=== PATIENT | male | born 1935 | race Caucasian/White ===

== ENCOUNTER 2019-11-05 16:16 | Emergency (ER) | payer MEDICARE, SELFPAY ==
[2019-11-05 16:27] VITALS: BP 189/85; PULSE 74; RESP 12; TEMP 37.2; O2SAT 95; BMI 32.3
--- NOTE | 2019-11-05 16:32 | ED_ITS ---
HPI - Nausea/Vomiting/Diarrhea <DO Messi Cohn Last Filed: 11/06/19 07:00> General Chief complaint: Nausea/Vomiting/Diarrhea Stated complaint: vomiting Time Seen by Provider: 11/05/19 16:28 Source: patient Mode of arrival: Ambulatory History of Present Illness HPI Narrative: The patient is an 84-year-old male with history of hypertension hyperlipidemia presenting with nausea and vomiting ongoing for the last 4 days. He threw up about 6 times it seems to be decreasing but he also has some periumbilical pain which is nonradiating. He feels overall weak and tired but not dizzy. He has not passed out. He denies any diarrhea or fever. No chest pain cough or shortness of breath. He has had episodes sort of similar to this earlier this year in fact this the 5th one. However he thinks it was related to vertigo and his symptoms quickly resolve. This is the 1st time that they have lasted. He denies any focal deficits. He intermittently has a headache but denies a headache now. He has been unable to take his blood pressure medications because of his nausea and vomiting. MD complaint: nausea, vomiting and abdominal pain Onset (ago): day(s) Location of pain: periumbilical Relieving factors: none Related Data Allergies Allergy/AdvReac Type Severity Reaction Status Date / Time No Known Allergies Allergy Unknown Verified 11/05/19 17:18 Review of Systems <DO Messi Cohn Last Filed: 11/06/19 07:00> Review of Systems Narrative: GENERAL: + generalized weakness Denies chills, fatigue, malaise, fever, sweats, travel HEENT: Denies sinus pain, ear pain, sore throat, difficulty swallowing, neck pain RESPIRATORY: Denies dyspnea, cough, wheezing, hemoptysis, sputum. CARDIOVASCULAR: Denies chest pain, palpitations, orthopnea, edema GASTROINTESTINAL: See HPI : Denies dysuria, frequency, incontinence, hematuria, urinary retention, flank pain. MUSCULOSKELETAL: Denies weakness, joint pain, or bony pain SKIN: No rash, no erythema, no pruritus NEUROLOGIC: Denies weakness, dizziness, headache, numbness, change in speech, confusion PSYCHIATRIC: No concerning psychosocial issues. 12 point review of systems is negative except for those stated above and HPI Patient History <DO Messi Cohn Last Filed: 11/06/19 07:00> Medical History Hyperlipidemia (Acute) Hypertension (Acute) Social History Smoking Status: Never smoker Smoking Status: Never smoker alcohol intake frequency: a few times a week Substance Use Type: does not use Exam <Sandy Sutherland DO - Last Filed: 11/06/19 07:00> Initial Vital Signs Initial Vital Signs: Vital Signs Temperature 98.9 F 11/05/19 16:27 Pulse Rate 74 11/05/19 16:27 Respiratory Rate 12 11/05/19 16:27 Blood Pressure 189/85 H 11/05/19 16:27 Pulse Oximetry 95 11/05/19 16:27 GENERAL: Appears younger than stated age and in no acute distress. HEENT: Head atraumatic,EOMI, pupils reactive, face symmetric, moist mucous membranes CARDIOVASCULAR: Regular rate and rhythm without murmurs, rubs or gallops. RESPIRATORY: Breath sounds equal bilaterally, no wheezes rales or rhonchi. ABDOMEN: Soft, periumbilical pain no right upper quadrant pain : No CVA tenderness EXTREMITIES: Normal range of motion, no clubbing or edema. Neurovascularly intact NEUROLOGICAL: Alert and oriented x4.Normal gait and speech. SKIN: Warm, dry, no laceration, no petechiae, no rashes or lesions. <Laxmi Anderson MD - Last Filed: 11/05/19 20:21> Initial Vital Signs Initial Vital Signs: Vital Signs Temperature 98.9 F 11/05/19 16:27 Pulse Rate 74 11/05/19 16:27 Respiratory Rate 12 11/05/19 16:27 Blood Pressure 189/85 H 11/05/19 16:27 Pulse Oximetry 95 11/05/19 16:27 Scores <Sandy Sutherland DO - Last Filed: 11/06/19 07:00> ABCD2 Citation: Lancet. 2006Mar 24;369(5602):283-92. Validation and refinement of scores to predict very early stroke risk after transient ischaemic attack. iHren SC1, Katelyn PM, Carlos MN, Naman MF, Luna JS, Sonja AL, Karlos S. Course <Sandy Sutherland DO - Last Filed: 11/06/19 07:00> Orders Ordered: Discontinued Medications Sodium Chloride (Normal Saline 0.9%) 1,000 mls @ 1,000 mls/hr IV CONT CARRIE Last Infusion: 11/05/19 18:51 Dose: 0 mls/hr Documented by: Admin: 11/05/19 17:21 Dose: 1,000 mls/hr Documented by: ADONAY Ondansetron HCl (Zofran) 4 mg IV NOW ONE Stop: 11/05/19 17:09 Last Admin: 11/05/19 17:21 Dose: 4 mg Documented by: ADONAY Stylesdansetron HCl (Zofran Odt Prepack) 1 bottle MISC SEEINSTR ONE Stop: 11/05/19 19:43 Last Admin: 11/05/19 19:56 Dose: 1 bottle Documented by: ADONAY Vital Signs Vital signs: Vital Signs - 8 hr 11/05/19 16:27 11/05/19 18:37 11/05/19 19:02 Temperature 98.9 F Pulse Rate 74 67 72 Respiratory Rate 12 15 21 Blood Pressure 189/85 H 178/79 H Pulse Oximetry 95 99 97 11/05/19 19:30 11/05/19 19:38 Temperature Pulse Rate 66 73 Respiratory Rate 15 16 Blood Pressure 180/83 H Pulse Oximetry 97 95 <Laxmi Anderson MD - Last Filed: 11/05/19 20:21> Orders Ordered: Discontinued Medications Sodium Chloride (Normal Saline 0.9%) 1,000 mls @ 1,000 mls/hr IV CONT CARRIE Last Infusion: 11/05/19 18:51 Dose: 0 mls/hr Documented by: Admin: 11/05/19 17:21 Dose: 1,000 mls/hr Documented by: ADONAY Ondansetron HCl (Zofran) 4 mg IV NOW ONE Stop: 11/05/19 17:09 Last Admin: 11/05/19 17:21 Dose: 4 mg Documented by: ADONAY Ondansetron HCl (Zofran Odt Prepack) 1 bottle MISC SEEINSTR ONE Stop: 11/05/19 19:43 Last Admin: 09/09/20 19:56 Dose: 1 bottle Documented by: ADONAY Vital Signs Vital signs: Vital Signs - 8 hr 11/05/19 16:27 11/05/19 18:37 11/05/19 19:02 Temperature 98.9 F Pulse Rate 74 67 72 Respiratory Rate 12 15 21 Blood Pressure 189/85 H 178/79 H Pulse Oximetry 95 99 97 11/05/19 19:30 11/05/19 19:38 Temperature Pulse Rate 66 73 Respiratory Rate 15 16 Blood Pressure 180/83 H Pulse Oximetry 97 95 MDM - Nausea/Vomiting/Diarrhea <Sandy Sutherland DO - Last Filed: 11/06/19 07:00> Lab Data Result diagrams: 11/05/19 17:28 11/05/19 17:28 Labs: Lab Results 11/05/19 11/05/19 11/05/19 Range/Units 17:28 17:28 17:28 WBC 10.1 (4.5-11.0) X10^3/uL RBC 5.60 (4.5-5.9) X10^6/uL Hgb 17.0 (13.5-17.5) g/dL Hct 49.7 (41-53) % MCV 88.8 (80-100) fL MCH 30.4 (26-34) PG MCHC 34.2 (30-36) % RDW 14.2 (11.6-14.8) % Plt Count TNP Neut % (Auto) 74.4 (50-75) % Lymph % (Auto) 15.3 L (25-40) % Prentiss % (Auto) 9.4 (3-14) % Eos % (Auto) 0.4 L (2-4) % Baso % (Auto) 0.5 (0-2) % Neut # (Auto) 7500 H (5325-1990) /uL Lymph # (Auto) 1500 (1624-2744) /uL Prentiss # (Auto) 1000 H (0-900) /uL Eos # (Auto) 0 (0-450) /uL Baso # (Auto) 100 (0-100) /uL Sodium 137 (137-145) mmol/L Potassium 4.1 (3.4-5.1) mmol/L Chloride 101 (98-107) mmol/L Carbon Dioxide 26 (22-32) mmol/L BUN 14 (9-20) mg/dL Creatinine 0.82 (0.66-1.25) mg/dL Estimated GFR > 60.0 (>60) mL/min BUN/Creatinine Ratio 17.1 (6-22) Glucose 111 H (80-110) mg/dL Calcium 9.9 (8.4-10.2) mg/dL Total Bilirubin 2.4 H (0.2-1.3) mg/dL AST 58 (17-59) IU/L ALT 44 (<50) IU/L Alkaline Phosphatase 56 (38-126) U/L Total Creatine Kinase 92 (55-170) U/L CK-MB (CK-2) TNP CK-MB (CK-2) Rel Index TNP Troponin I < 0.012 (0.01-0.034) ng/mL Total Protein 8.3 H (6.3-8.2) g/dL Albumin 4.9 (3.5-5.0) g/dL Globulin 3.4 (1.7-4.1) g/dL Albumin/Globulin Ratio 1.4 (1.0-2.8) Lipase 78 (23-300) U/L Urine Dip Bedside Urine Glucose Negative Bedside Urine Bilirubin - Negative Bedside Urine Ketone + 15 Urine Specific Pelican 1.005 Bedside Urine Occult Blood - Negative Bedside Urine pH 7.0 Bedside Urine Protein - Negative Bedside Urine Urobilinogen - Negative Bedside Urine Nitrite - Negative Bedside Urine Leukocytes - Negative Esterase MDM Narrative Medical decision making narrative: Patient signed out to Dr. Anderson, CT and blood work pending <Laxmi Anderson MD - Last Filed: 11/05/19 20:21> Medical Records Attestation: I reviewed the patient's medical records. Lab Data Attestation: I reviewed the patient's lab results. Labs: Lab Results 11/05/19 11/05/19 11/05/19 Range/Units 17:28 17:28 17:28 WBC 10.1 (4.5-11.0) X10^3/uL RBC 5.60 (4.5-5.9) X10^6/uL Hgb 17.0 (13.5-17.5) g/dL Hct 49.7 (41-53) % MCV 88.8 (80-100) fL MCH 30.4 (26-34) PG MCHC 34.2 (30-36) % RDW 14.2 (11.6-14.8) % Plt Count TNP Neut % (Auto) 74.4 (50-75) % Lymph % (Auto) 15.3 L (25-40) % Prentiss % (Auto) 9.4 (3-14) % Eos % (Auto) 0.4 L (2-4) % Baso % (Auto) 0.5 (0-2) % Neut # (Auto) 7500 H (9524-7113) /uL Lymph # (Auto) 1500 (3622-5043) /uL Prentiss # (Auto) 1000 H (0-900) /uL Eos # (Auto) 0 (0-450) /uL Baso # (Auto) 100 (0-100) /uL Sodium 137 (137-145) mmol/L Potassium 4.1 (3.4-5.1) mmol/L Chloride 101 (98-107) mmol/L Carbon Dioxide 26 (22-32) mmol/L BUN 14 (9-20) mg/dL Creatinine 0.82 (0.66-1.25) mg/dL Estimated GFR > 60.0 (>60) mL/min BUN/Creatinine Ratio 17.1 (6-22) Glucose 111 H (80-110) mg/dL Calcium 9.9 (8.4-10.2) mg/dL Total Bilirubin 2.4 H (0.2-1.3) mg/dL AST 58 (17-59) IU/L ALT 44 (<50) IU/L Alkaline Phosphatase 56 (38-126) U/L Total Creatine Kinase 92 (55-170) U/L CK-MB (CK-2) TNP CK-MB (CK-2) Rel Index TNP Troponin I < 0.012 (0.01-0.034) ng/mL Total Protein 8.3 H (6.3-8.2) g/dL Albumin 4.9 (3.5-5.0) g/dL Globulin 3.4 (1.7-4.1) g/dL Albumin/Globulin Ratio 1.4 (1.0-2.8) Lipase 78 (23-300) U/L Urine Dip Bedside Urine Glucose Negative Bedside Urine Bilirubin - Negative Bedside Urine Ketone + 15 Urine Specific Pelican 1.005 Bedside Urine Occult Blood - Negative Bedside Urine pH 7.0 Bedside Urine Protein - Negative Bedside Urine Urobilinogen - Negative Bedside Urine Nitrite - Negative Bedside Urine Leukocytes - Negative Esterase Imaging Data CT scan - abdomen/pelvis: Radiologist's Impression: FINDINGS: Image quality: Excellent. ABDOMEN: Lung bases: Visualized lung bases demonstrate mild bibasilar dependent atelectasis. Heart size is normal. Solid organs: Liver demonstrates diffusely decreased attenuation relative to the spleen with more geographic area of hyperattenuation involving the posterior margin of the inferior right hepatic lobe. There is minimal focality involving the peripheral margin of the right hepatic lobe more inferiorly best seen on image 33, series 2. Gallbladder is unremarkable. Biliary system is non dilated. Pancreas enhances normally. There is a 1.5 cm hypodense lesion noted near the head of the pancreas (image 29, series 2. No definite communication with the main pancreatic duct. No peripancreatic i nflammatory stranding. No pancreatic ductal dilatation. Spleen is normal in size and enhancement. No adrenal nodules. There is a nonobstructing 6 mm calculus within the right kidney. Bilateral ureters are normal in course and caliber. No ureteral stones seen. Kidneys demonstrate normal size and enhancement, without hydronephrosis. Peritoneum and bowel: Scattered colonic diverticula without acute inflammatory changes. Diverticular most pronounced near the sigmoid colon. Bowel loops demonstrate normal wall thickness and caliber. No free fluid or air. Nodes and vessels: No retroperitoneal or mesenteric adenopathy by size criteria. Scattered atherosclerotic calcifications of the abdominal aorta and iliac vessels without aneurysmal dilatation. Miscellaneous: No ventral hernias. PELVIS: Genitourinary: Bladder wall thickness is normal. The prostate gland is not visualized and presumably resected.. Miscellaneous: No inguinal hernias or adenopathy. Bones: No suspicious bony lesions. No acute vertebral body compression fractures. IMPRESSION: 1. CT abdomen and pelvis without acute abnormalities. Specifically, no evidence for obstruction or acute inflammatory/infectious process. 2. Diffuse hepatic steatosis with more geographic areas of hyperattenuation involving the posterior, inferior right hepatic lobe likely representing fatty sparing. There is a small area of more focal hyperattenuation which is still favored to represent focal fatty sparing. Recommend outpatient CT or MRI (hepatic mass protocol) to further characterize. 3. A 1.5 cm hypodense lesion noted near the head of the pancreas suspicious for pancreatic neoplasm. This can also be evaluated with outpatient CT or MRI (pancreatic mass protocol) for further characterization. 4. Scattered colonic diverticula without acute diverticulitis. 5. Nonobstructing right nephrolith without hydronephrosis. Dictated by: Rudy Merritt M.D. on 11/05/2019 at 18:51 ECG Data Attestation: I personally reviewed and interpreted this ECG as follows: Interpretation: Sinus rhythm at a rate of 73 Normal intervals, normal axis No acute ischemic changes MDM Narrative Medical decision making narrative: Of note and likely not related to today's acute findings but certainly needing follow-up: A 1.5 cm hypodense lesion noted near the head of the pancreas suspicious for pancreatic neoplasm. This can also be evaluated with outpatient CT or MRI (pancreatic mass protocol) for further characterization. Patient is feeling much better after Zofran and rehydration. Will send home with Zofran prepack. Use able to tolerate cranberry juice without difficulty. I did review with he and his the concerning findings above. Recommended a follow-up with Dr. Urban tomorrow to arrange additional imaging studies. He is safe for home discharge Discharge Plan Departure Patient Disposition: Home Clinical Impression: Acute vomiting, Abnormal finding on CT scan Discharge Date/Time: 11/05/19 19:45 Instructions: DI for Vomiting -- Adult Activity Restrictions/Additional Instructions: Thank you for coming in today. I am glad you are feeling better. There were no signs of acute infection or surgical emergencies with your CT scan. I am going to send you home with Zofran to use to help with the nausea. On your CT scan there was an incidental finding that the radiologist was concerned might be a pancreatic cancer. This is not a diagnosis and this finding needs additional workup. Please contact Dr. Urban office tomorrow so that they can help set up the next study all so we know what this finding actu ally means. I wish you the best Referrals: Jt Urban MD [Primary Care Provider] -
--- NOTE | 2019-11-05 17:08 | DI.CT.S_ITS ---
PROCEDURE: CT ABDOMEN PELVIS W CON INDICATIONS: ab pain with vomiting TECHNIQUE: After the administration of intravenous contrast, 5 mm thick sections acquired from the diaphragm to the symphysis. 5 mm coronal and sagittal reformats were acquired. For radiation dose reduction, the following was used: automated exposure control, adjustment of mA and/or kV according to patient size. COMPARISON: None. FINDINGS: Image quality: Excellent. ABDOMEN: Lung bases: Visualized lung bases demonstrate mild bibasilar dependent atelectasis. Heart size is normal. Solid organs: Liver demonstrates diffusely decreased attenuation relative to the spleen with more geographic area of hyperattenuation involving the posterior margin of the inferior right hepatic lobe. There is minimal focality involving the peripheral margin of the right hepatic lobe more inferiorly best seen on image 33, series 2. Gallbladder is unremarkable. Biliary system is non dilated. Pancreas enhances normally. There is a 1.5 cm hypodense lesion noted near the head of the pancreas (image 29, series 2. No definite communication with the main pancreatic duct. No peripancreatic inflammatory stranding. No pancreatic ductal dilatation. Spleen is normal in size and enhancement. No adrenal nodules. There is a nonobstructing 6 mm calculus within the right kidney. Bilateral ureters are normal in course and caliber. No ureteral stones seen. Kidneys demonstrate normal size and enhancement, without hydronephrosis. Peritoneum and bowel: Scattered colonic diverticula without acute inflammatory changes. Diverticular most pronounced near the sigmoid colon. Bowel loops demonstrate normal wall thickness and caliber. No free fluid or air. Nodes and vessels: No retroperitoneal or mesenteric adenopathy by size criteria. Scattered atherosclerotic calcifications of the abdominal aorta and iliac vessels without aneurysmal dilatation. Miscellaneous: No ventral hernias. PELVIS: Genitourinary: Bladder wall thickness is normal. The prostate gland is not visualized and presumably resected.. Miscellaneous: No inguinal hernias or adenopathy. Bones: No suspicious bony lesions. No acute vertebral body compression fractures. IMPRESSION: 1. CT abdomen and pelvis without acute abnormalities. Specifically, no evidence for obstruction or acute inflammatory/infectious process. 2. Diffuse hepatic steatosis with more geographic areas of hyperattenuation involving the posterior, inferior right hepatic lobe likely representing fatty sparing. There is a small area of more focal hyperattenuation which is still favored to represent focal fatty sparing. Recommend outpatient CT or MRI (hepatic mass protocol) to further characterize. 3. A 1.5 cm hypodense lesion noted near the head of the pancreas suspicious for pancreatic neoplasm. This can also be evaluated with outpatient CT or MRI (pancreatic mass protocol) for further characterization. 4. Scattered colonic diverticula without acute diverticulitis. 5. Nonobstructing right nephrolith without hydronephrosis. Dictated by: Rudy Merritt M.D. on 11/05/2019 at 18:51 Approved by: Rudy Merritt M.D. on 11/05/2019 at 19:01
[2019-11-05] MEDS: SODIUM CHLORIDE 0.9% 1,000 ML 1000 ML IV (17:21)
[2019-11-05] MEDS: ONDANSETRON 4 MG/2 ML INJ IV (17:21)
[2019-11-05 17:48] LABS: Add Manual Diff / Slide Review NO; Basophils Absolute Auto 100 /uL (0-100); Basophils Percent Auto 0.5 % (0-2); Eosinophils Absolute Auto 0 /uL (0-450); Eosinophils Percent Auto 0.4 % (2-4); Hematocrit 49.7 % (41-53); Lymphocytes Absolute Auto 1500 /uL (1100-4500); Lymphocytes Percent Auto 15.3 % (25-40); Mean Corpuscular HGB Conc 34.2 % (30-36); Mean Corpuscular Hemoglobin 30.4 PG (26-34); Mean Corpuscular Volume 88.8 fL (80-100); Monocytes Absolute Auto 1000 /uL (0-900); Monocytes Percent Auto 9.4 % (3-14); Neutrophils Absolute Auto 7500 /uL (1500-7000); Neutrophils Percent Auto 74.4 % (50-75); Red Cell Distribution Width 14.2 % (11.6-14.8); White Blood Cell Count 10.1 X10^3/uL (4.5-11.0)
[2019-11-05 17:52] LABS: Alanine Aminotransferase 44 IU/L (<50); Albumin 4.9 g/dL (3.5-5.0); Albumin Globulin Ratio 1.4 (1.0-2.8); Alkaline Phosphatase 56 U/L (38-126); Aspartate Aminotransferase 58 IU/L (17-59); BUN Creatinine Ratio 17.1 (6-22); Bilirubin Total 2.4 mg/dL (0.2-1.3); Blood Urea Nitrogen 14 mg/dL (9-20); Calcium 9.9 mg/dL (8.4-10.2); Carbon Dioxide 26 mmol/L (22-32); Chloride 101 mmol/L (98-107); Creatine Kinase 92 U/L (55-170); Estimated Glomerular Filt Rate > 60.0 mL/min (>60); Globulin 3.4 g/dL (1.7-4.1); Glucose 111 mg/dL (80-110); Lipase 78 U/L (23-300); Potassium 4.1 mmol/L (3.4-5.1); Sodium 137 mmol/L (137-145); Total Protein 8.3 g/dL (6.3-8.2)
[2019-11-05 18:03] LABS: Troponin I < 0.012 ng/mL (0.01-0.034)
[2019-11-05 18:11] LABS: HEMOLYSIS 77 (0-50)
[2019-11-05 18:37] VITALS: BP 178/79; PULSE 67; RESP 15; O2SAT 99
[2019-11-05 19:02] VITALS: PULSE 72; RESP 21; O2SAT 97
[2019-11-05 19:30] VITALS: PULSE 66; RESP 15; O2SAT 97
[2019-11-05 19:38] VITALS: BP 180/83; PULSE 73; RESP 16; O2SAT 95
[2019-11-05] MEDS: ONDANSETRON 4 MG ODT PREPACK 1 BOTTLE MISC (19:56)
== END 2019-11-05 19:45 | disposition home or self-care (01) ==
PROVIDERS: Emergency Medicine; Emergency Provider Emergency Medicine; Family Provider Internal Medicine; PCP Internal Medicine
DX: R11.2 Nausea with vomiting, unspecified (principal); R93.89 Abnormal findings on diagnostic imaging of other specified body structures; E78.5 Hyperlipidemia, unspecified; I10 Essential (primary) hypertension
CPT/HCPCS: 36415; 74177; 80053; 81003; 82550; 83690; 84484; 85025; 93005; 96361; 96374; 99284; J2405; Q9967

== ENCOUNTER → 2019-12-23 19:57 | Outpatient (ROUT) | payer MEDICARE, SELFPAY ==
[2019-12-23 20:51] LABS: Add Manual Diff / Slide Review NO; Basophils Absolute Auto 0 /uL (0-100); Basophils Percent Auto 0.3 % (0-2); Eosinophils Absolute Auto 100 /uL (0-450); Eosinophils Percent Auto 1.2 % (2-4); Hematocrit 51.9 % (41-53); Hemoglobin 17.1 g/dL (13.5-17.5); Lymphocytes Absolute Auto 1500 /uL (1100-4500); Lymphocytes Percent Auto 22.2 % (25-40); Mean Corpuscular Hemoglobin 29.9 PG (26-34); Mean Corpuscular Volume 90.8 fL (80-100); Monocytes Absolute Auto 600 /uL (0-900); Monocytes Percent Auto 8.6 % (3-14); Neutrophils Absolute Auto 4500 /uL (1500-7000); Neutrophils Percent Auto 67.7 % (50-75); Platelet Count 138 X10^3/uL (150-400); Red Blood Cell Count 5.71 X10^6/uL (4.5-5.9); Red Cell Distribution Width 13.8 % (11.6-14.8); White Blood Cell Count 6.6 X10^3/uL (4.5-11.0)
[2019-12-23 21:10] LABS: Alanine Aminotransferase 52 IU/L (<50); Albumin 4.7 g/dL (3.5-5.0); Albumin Globulin Ratio 1.7 (1.0-2.8); Alkaline Phosphatase 81 U/L (38-126); Aspartate Aminotransferase 42 IU/L (17-59); BUN Creatinine Ratio 14.8 (6-22); Bilirubin Total 1.6 mg/dL (0.2-1.3); Blood Urea Nitrogen 13 mg/dL (9-20); Calcium 9.9 mg/dL (8.4-10.2); Carbon Dioxide 26 mmol/L (22-32); Chloride 104 mmol/L (98-107); Cholesterol 150 mg/dL (140-199); Estimated Glomerular Filt Rate > 60.0 mL/min (>60); Globulin 2.8 g/dL (1.7-4.1); Glucose 126 mg/dL (80-110); HDL Cholesterol 30 mg/dL (40-60); HEMOLYSIS 23 (0-50); LDL Cholesterol Calculated 49 mg/dL (<100); Potassium 3.9 mmol/L (3.4-5.1); Sodium 141 mmol/L (137-145); Total Protein 7.5 g/dL (6.3-8.2); Triglycerides 353 mg/dL (35-150)
[2019-12-23 22:30] LABS: Hemoglobin A1C% w Est Avg Glu 6.1 % (4.0-6.0)
== END ==
PROVIDERS: Family Provider Internal Medicine; PCP Internal Medicine; Visit Provider Internal Medicine
DX: R63.4 Abnormal weight loss (principal); E78.2 Mixed hyperlipidemia
CPT/HCPCS: 80053; 80061; 83036; 84443; 85025

== ENCOUNTER 2020-11-02 14:49 | Emergency (ER) | payer OTHER, SELFPAY ==
[2020-11-02] VITALS (12 sets, daily range): BP systolic 156–171; BP diastolic 67–122; PULSE 58–62; RESP 12–18; TEMP 36.2; O2SAT 95–99; BMI 30.8
[2020-11-02 15:59] LABS: Add Manual Diff / Slide Review NO; Basophils Absolute Auto 0 /uL (0-100); Basophils Percent Auto 0.3 % (0-2); Eosinophils Absolute Auto 0 /uL (0-450); Eosinophils Percent Auto 0.1 % (2-4); Hematocrit 49.9 % (41-53); Hemoglobin 16.8 g/dL (13.5-17.5); Lymphocytes Absolute Auto 900 /uL (1100-4500); Mean Corpuscular HGB Conc 33.7 % (30-36); Mean Corpuscular Hemoglobin 30.3 PG (26-34); Mean Corpuscular Volume 89.9 fL (80-100); Monocytes Absolute Auto 600 /uL (0-900); Monocytes Percent Auto 4.6 % (3-14); Neutrophils Absolute Auto 11800 /uL (1500-7000); Platelet Count 154 X10^3/uL (150-400); Red Blood Cell Count 5.55 X10^6/uL (4.5-5.9); Red Cell Distribution Width 13.9 % (11.6-14.8); White Blood Cell Count 13.4 X10^3/uL (4.5-11.0)
[2020-11-02 16:11] LABS: Alanine Aminotransferase 25 IU/L (<50); Albumin 5.1 g/dL (3.5-5.0); Albumin Globulin Ratio 1.8 (1.0-2.8); Alkaline Phosphatase 70 U/L (38-126); Aspartate Aminotransferase 29 IU/L (17-59); BUN Creatinine Ratio 19.7 (6-22); Bilirubin Total 1.9 mg/dL (0.2-1.3); Blood Urea Nitrogen 15 mg/dL (9-20); Calcium 10.2 mg/dL (8.4-10.2); Carbon Dioxide 24 mmol/L (22-32); Chloride 103 mmol/L (98-107); Estimated Glomerular Filt Rate > 60.0 mL/min (>60); Globulin 2.8 g/dL (1.7-4.1); Glucose 138 mg/dL (80-110); HEMOLYSIS 22 (0-50); Lipase 79 U/L (23-300); Potassium 3.9 mmol/L (3.4-5.1); Sodium 139 mmol/L (137-145); Total Protein 7.9 g/dL (6.3-8.2)
[2020-11-02] MEDS: SODIUM CHLORIDE 0.9% 1,000 ML 1000 ML IV (17:03)
--- NOTE | 2020-11-02 17:20 | ED_ITS ---
HPI - Nausea/Vomiting/Diarrhea <TITUS Prieto - Last Filed: 11/02/20 19:21> General Chief complaint: Nausea/Vomiting/Diarrhea Stated complaint: vomitting/dehydration Time Seen by Provider: 11/02/20 16:55 Source: patient Mode of arrival: Ambulatory Limitations: no limitations History of Present Illness HPI Narrative: 85-year-old male with history of hypertension andhyperlipidemia, presents to the ED with nausea and vomiting ongoing for 3 days. He believes he triggered this abdominal pain and vomiting after having a large piece of chocolate cake and a large apple further on Sunday. He reports that 30 minutes later he developed abdominal pain and has been vomiting since and unable to keep anything down, he says he feels dehydrated. He denies having any abdominal pain currently. He feels tired overall but not dizzy. He has not passed out. He denies any diarrhea or fever, last BM was on Sunday. No chest pain cough or shortness of breath. He has had episodes similar to this 1 year ago with an EGD completed at [facility] showing pancreatic cysts without malignancy, several biopsies were taken and all were benign. He reports this feels exactly the same as when he presented to the ED 1 year ago for this same type of abdominal pain. He reports that he is due for a follow-up MRCP to be scheduled as an outpatient and he was planning to do that this week. Related Data Allergies Allergy/AdvReac Type Severity Reaction Status Date / Time lisinopril AdvReac Verified 11/02/20 15:08 Review of Systems <TITUS Prieto - Last Filed: 11/02/20 19:21> Review of Systems Narrative: General: denies fever, chills Head/Neck: denies headache, neck pain Eyes: denies visual changes, eye pain Cardio: denies chest pain, palpitations Respiratory: denies shortness of breath, cough GI: denies abdominal pain, complains of nausea and vomiting, denies diarrhea : denies dysuria, hematuria or flank pain MSK: denies joint pain, muscle weakness Skin: denies rash, itching Neuro: denies numbness, tingling Patient History <TITUS Prieto - Last Filed: 11/02/20 19:21> Medical History (Updated 11/02/20 @ 18:33 by TITUS Prieto) Hyperlipidemia Hypertension Social History Smoking Status: Never smoker Smoking Status: Never smoker alcohol intake frequency: a few times a week Substance Use Type: does not use Exam <TITUS Prieto - Last Filed: 11/02/20 19:21> Narrative Exam Narrative: Independently reviewed vitals signs and nursing notes. General: Awake, alert, nontoxic, no cardiorespiratory distress Head/Neck: Atraumatic, neck full range of motion Eyes: EOMI, conjunctiva normal Nose: nares patent, no rhinorrhea Mouth/Throat: Mucous membranes appear slightly dry Cardio: Regular rate and rhythm, no peripheral edema Respiratory: respirations unlabored without wheezing, stridor, or rales. No retractions. GI: Abdomen soft, nontender to palpation x4 quadrants, no masses or rigidity MSK: Moves all extremities, neurovascularly intact Skin: Normal capillary refill, no rash, normal color for ethnicity, no pallor Neuro: Normal speech and cognition, normal gait Initial Vital Signs Initial Vital Signs: Vital Signs Temperature 97.2 F L 11/02/20 15:09 Pulse Rate 59 L 11/02/20 15:09 Respiratory Rate 18 11/02/20 15:09 Blood Pressure 167/79 H 11/02/20 15:09 Pulse Oximetry 97 11/02/20 15:09 <Laxmi Anderson MD - Last Filed: 11/03/20 14:40> Initial Vital Signs Initial Vital Signs: Vital Signs Temperature 97.2 F L 11/02/20 15:09 Pulse Rate 59 L 11/02/20 15:09 Respiratory Rate 18 11/02/20 15:09 Blood Pressure 167/79 H 11/02/20 15:09 Pulse Oximetry 97 11/02/20 15:09 Course <TITUS Prieto - Last Filed: 11/02/20 19:21> Orders Ordered: Discontinued Medications Sodium Chloride (Normal Saline 0.9%) 1,000 mls @ 1,000 mls/hr IV BOLUS ONE Stop: 11/02/20 16:16 Last Infusion: 11/02/20 18:49 Dose: 0 mls/hr Documented by: Admin: 11/02/20 17:03 Dose: 1,000 mls/hr Documented by: ADONAY Ondansetron HCl (Ondansetron 4 Mg/2 Ml Inj) 4 mg IV NOW ONE Stop: 11/02/20 17:14 Last Admin: 11/02/20 17:25 Dose: 4 mg Documented by: ADONAY Ondansetron HCl (Ondansetron 4 Mg/2 Ml Inj) 4 mg IV NOW ONE Stop: 11/02/20 19:10 Last Admin: 11/02/20 19:12 Dose: 4 mg Documented by: GARIMA Vital Signs Vital signs: Vital Signs - 8 hr 11/02/20 15:09 11/02/20 16:55 11/02/20 17:00 Temperature 97.2 F L Pulse Rate 59 L 62 62 Respiratory Rate 18 13 Blood Pressure 167/79 H 168/70 H 156/69 H Pulse Oximetry 97 97 97 11/02/20 17:30 11/02/20 17:32 11/02/20 18:00 Temperature Pulse Rate 61 60 59 L Respiratory Rate 15 13 13 Blood Pressure 159/70 H Pulse Oximetry 98 99 99 11/02/20 18:01 11/02/20 18:30 11/02/20 18:41 Temperature Pulse Rate 58 L 59 L 61 Respiratory Rate 13 13 16 Blood Pressure 171/72 H 162/122 H 164/67 H Pulse Oximetry 99 98 95 11/02/20 19:00 11/02/20 19:01 11/02/20 19:12 Temperature Pulse Rate 58 L 59 L 59 L Respiratory Rate 12 12 Blood Pressure 163/71 H 163/71 H Pulse Oximetry 99 99 99 <Laxmi Anderson MD - Last Filed: 11/03/20 14:40> Orders Ordered: Discontinued Medications Sodium Chloride (Normal Saline 0.9%) 1,000 mls @ 1,000 mls/hr IV BOLUS ONE Stop: 11/02/20 16:16 Last Infusion: 11/02/20 18:49 Dose: 0 mls/hr Documented by: Admin: 11/02/20 17:03 Dose: 1,000 mls/hr Documented by: ADONAY Ondansetron HCl (Ondansetron 4 Mg/2 Ml Inj) 4 mg IV NOW ONE Stop: 11/02/20 17:14 Last Admin: 11/02/20 17:25 Dose: 4 mg Documented by: ADONAY Ondansetron HCl (Ondansetron 4 Mg/2 Ml Inj) 4 mg IV NOW ONE Stop: 11/02/20 19:10 Last Admin: 11/02/20 19:12 Dose: 4 mg Documented by: GARIMA Vital Signs Vital signs: Vital Signs - 8 hr 11/02/20 15:09 11/02/20 16:55 11/02/20 17:00 Temperature 97.2 F L Pulse Rate 59 L 62 62 Respiratory Rate 18 13 Blood Pressure 167/79 H 168/70 H 156/69 H Pulse Oximetry 97 97 97 11/02/20 17:30 11/02/20 17:32 11/02/20 18:00 Temperature Pulse Rate 61 60 59 L Respiratory Rate 15 13 13 Blood Pressure 159/70 H Pulse Oximetry 98 99 99 11/02/20 18:01 11/02/20 18:30 11/02/20 18:41 Temperature Pulse Rate 58 L 59 L 61 Respiratory Rate 13 13 16 Blood Pressure 171/72 H 162/122 H 164/67 H Pulse Oximetry 99 98 95 11/02/20 19:00 11/02/20 19:01 11/02/20 19:12 Temperature Pulse Rate 58 L 59 L 59 L Respiratory Rate 12 12 Blood Pressure 163/71 H 163/71 H Pulse Oximetry 99 99 99 MDM - Nausea/Vomiting/Diarrhea <TITUS Prieto - Last Filed: 11/02/20 19:21> Lab Data Result diagrams: 11/02/20 15:45 11/02/20 15:45 Labs: Lab Results 11/02/20 11/02/20 Range/Units 15:45 15:45 WBC 13.4 H (4.5-11.0) X10^3/uL RBC 5.55 (4.5-5.9) X10^6/uL Hgb 16.8 (13.5-17.5) g/dL Hct 49.9 (41-53) % MCV 89.9 (80-100) fL MCH 30.3 (26-34) PG MCHC 33.7 (30-36) % RDW 13.9 (11.6-14.8) % Plt Count 154 (150-400) X10^3/uL Neut % (Auto) 88.0 H (50-75) % Lymph % (Auto) 7.0 L (25-40) % Hood % (Auto) 4.6 (3-14) % Eos % (Auto) 0.1 L (2-4) % Baso % (Auto) 0.3 (0-2) % Neut # (Auto) 39599 H (4425-8807) /uL Lymph # (Auto) 900 L (4379-9191) /uL Hood # (Auto) 600 (0-900) /uL Eos # (Auto) 0 (0-450) /uL Baso # (Auto) 0 (0-100) /uL Sodium 139 (137-145) mmol/L Potassium 3.9 (3.4-5.1) mmol/L Chloride 103 (98-107) mmol/L Carbon Dioxide 24 (22-32) mmol/L BUN 15 (9-20) mg/dL Creatinine 0.76 (0.66-1.25) mg/dL Estimated GFR > 60.0 (>60) mL/min BUN/Creatinine Ratio 19.7 (6-22) Glucose 138 H (80-110) mg/dL Calcium 10.2 (8.4-10.2) mg/dL Total Bilirubin 1.9 H (0.2-1.3) mg/dL AST 29 (17-59) IU/L ALT 25 (<50) IU/L Alkaline Phosphatase 70 (38-126) U/L Total Protein 7.9 (6.3-8.2) g/dL Albumin 5.1 H (3.5-5.0) g/dL Globulin 2.8 (1.7-4.1) g/dL Albumin/Globulin Ratio 1.8 (1.0-2.8) Lipase 79 (23-300) U/L [facility] Narrative Medical decision making narrative: 85-year-old male with history of gastroparesis, hypertension, hyperlipidemia, presents to the ED with 3 days of nausea and vomiting following fatty meal. He has a history of pancreatic cysts on EGD in October of 2019 without malignancy. He believes this nausea and vomiting is related to his fatty meal as it started 30 minutes afterwards. No shortness of breath, no chest pain, and no abdominal pain today. His nausea and vomiting was relieved with IV Zofran today as well as 1 L of normal saline; he felt much better after these. He is due for his yearly MRCP and agrees to schedule this, this week. He is afebrile, and nontoxic appearing, he denies dizziness or headache. He was given strict ER precautions to return for any fever, persistent nausea vomiting, diarrhea, shortness of breath, chest pain or any other concerning symptoms. Negative Zee sign, abdomen nontender to palpation, without evidence of sepsis. His lipase was 79, white blood cell count elevated to 13.4 and bilirubin was stable 1.9 up from 1.6 last time. Initial ddx less likely considerations include but not limited to pancreatitis, cholangitis, cholecystitis, worsening gastroparesis, indigestion, and appendicitis. Vital signs were Within normal limits today. Patient is appropriate and amenable to discharge home. Vital signs are stable on repeat examination is unremarkable. Patient has been informed of results. Patient has been given strict return to ER precautions for any new or worsening symptoms. Patient understands to follow up closely with outpatient providers as instructed. Patient understands plan and agrees to discharge home. All questions and concerns answered at this time. <Lxami Anderson MD - Last Filed: 11/03/20 14:40> Lab Data Labs: Lab Results 11/02/20 11/02/20 Range/Units 15:45 15:45 WBC 13.4 H (4.5-11.0) X10^3/uL RBC 5.55 (4.5-5.9) X10^6/uL Hgb 16.8 (13.5-17.5) g/dL Hct 49.9 (41-53) % MCV 89.9 (80-100) fL MCH 30.3 (26-34) PG MCHC 33.7 (30-36) % RDW 13.9 (11.6-14.8) % Plt Count 154 (150-400) X10^3/uL Neut % (Auto) 88.0 H (50-75) % Lymph % (Auto) 7.0 L (25-40) % Hood % (Auto) 4.6 (3-14) % Eos % (Auto) 0.1 L (2-4) % Baso % (Auto) 0.3 (0-2) % Neut # (Auto) 63078 H (3031-9616) /uL Lymph # (Auto) 900 L (2743-9894) /uL Hood # (Auto) 600 (0-900) /uL Eos # (Auto) 0 (0-450) /uL Baso # (Auto) 0 (0-100) /uL Sodium 139 (137-145) mmol/L Potassium 3.9 (3.4-5.1) mmol/L Chloride 103 (98-107) mmol/L Carbon Dioxide 24 (22-32) mmol/L BUN 15 (9-20) mg/dL Creatinine 0.76 (0.66-1.25) mg/dL Estimated GFR > 60.0 (>60) mL/min BUN/Creatinine Ratio 19.7 (6-22) Glucose 138 H (80-110) mg/dL Calcium 10.2 (8.4-10.2) mg/dL Total Bilirubin 1.9 H (0.2-1.3) mg/dL AST 29 (17-59) IU/L ALT 25 (<50) IU/L Alkaline Phosphatase 70 (38-126) U/L Total Protein 7.9 (6.3-8.2) g/dL Albumin 5.1 H (3.5-5.0) g/dL Globulin 2.8 (1.7-4.1) g/dL Albumin/Globulin Ratio 1.8 (1.0-2.8) Lipase 79 (23-300) U/L Discharge Plan Departure Patient Disposition: Home Clinical Impression: Vomiting in adult patient, Dehydration Instructions: Ravia Diet, DI for Vomiting -- Adult Activity Restrictions/Additional Instructions: *You have been diagnosed with nausea, vomiting, and dehydration. Today he received Zofran and normal saline in your IV. Please schedule your over MRCP this week through your doctor at [facility]. Please return to the emergency department for any new or worsening symptoms including fever, chest pain, persistent nausea & vomiting, or anything else concerning. Please follow- up with your primary care physician as well. Thank you for coming in today, I hope you feel better. *What to do: *Please continue to take your regular medications as directed. [ ] New medication prescriptions sent to your pharmacy: [ ] [ ] New medication written as a paper prescription [x] No new medications given *Please follow up with your primary care provider in 2-3 days, call for an appointment. Let them know you were seen in the Emergency Department and that we ask that you be seen in follow up. We will electronically transmit a record of today's note if your PCP is in our system *If you do not have a primary care provider please contact the [facility] Resource line at [phone]. They will ask some questions about your medical history and help get you set up with a doctor in the community. *Return to Emergency Department if you should have any new, worsening or concerning symptoms, such as [fever greater than 101F, chills, worsening pain, persistent vomiting or other bothersome symptoms] Referrals: Jt Urban MD [Primary Care Provider] - <Laxmi Anderson MD - Last Filed: 11/03/20 14:40> Cosign ED Attending Cosignature Attestation: I was immediately available in the department for consultation throughout this patient's visit. I agree with documentation as above. Laxmi Anderson MD
[2020-11-02] MEDS: ONDANSETRON 4 MG/2 ML INJ IV ×2 (17:25→19:12)
--- NOTE | 2020-11-02 18:51 | PC.NURSE ---
Pt has history of gastroparesis. Feels symptoms are similar to previous episodes, but lasting longer this time.
== END 2020-11-02 19:21 | disposition home or self-care (01) ==
PROVIDERS: Emergency Medicine; Emergency Provider Nurse Practitioner Critical Care Medicine; Family Provider Internal Medicine; PCP Internal Medicine
DX: R11.2 Nausea with vomiting, unspecified (principal); E86.0 Dehydration
CPT/HCPCS: 36415; 80053; 83690; 85025; 96361; 96374; 96376; 99284; J2405

== ENCOUNTER → 2020-12-06 14:09 | Outpatient (CLI) | payer OTHER, SELFPAY ==
--- NOTE | 2020-12-06 | DI.MRI.S_ITS ---
PROCEDURE: MR ABDOMEN WO CON INDICATIONS: NEOPLASM OF UNSPECIFIED BEHAVIOR OF DIGESTIVE SYSTEM TECHNIQUE: Coronal HASTE through the abdomen, axial 2-D FLASH in- and [id number], and breath-hold T2 FSE with fat saturation through the biliary system and pancreas. Oblique coronal and axial thin-slice HASTE, radial thick-slab HASTE centered on the extrahepatic bile ducts. Intravenous secretin: Not requested. COMPARISON: [facility], CT, CT ABDOMEN PELVIS W CON, 11/05/2019, 18:19. FINDINGS: Image quality: Excellent. Pancreas and biliary system: Intra- and extra-hepatic biliary ducts are non dilated. Pancreas is normal in morphology, without adjacent soft tissue edema. Within the pancreatic head, there is a circumscribed T2 hyperintensity separate from the main pancreatic duct, closely associated to, and potentially communicating with a nondilated common duct. There may either be tiny loculations or a small serpiginous tail. It measures about 1.1 x 1.1 cm. Pancreatic duct is normal in caliber, without developmental anomalies. Several very small side branch dilatations are present along the pancreatic tail. Gallbladder demonstrates a normal wall thickness and no stones. Other solid organs: An ovoid subcapsular partially exophytic lesion arises from the medial aspect of segment measuring about 3.7 by 2.2 cm. Demonstrates mildly T2 increased and T1 decreased signal and multiple lobulations. No contrast was given on this study, however its post contrast enhancement on CT scan suggests cavernous hemangioma. A few other subcentimeter T2 hyperintensities are seen in the liver, likely small cysts. The liver is otherwise normal in size and signal. Spleen is normal in size. No adrenal nodules. Both kidneys are normal in size, without hydronephrosis. Nodes and vessels: No retroperitoneal or mesenteric adenopathy by size criteria. Aorta and inferior vena cava are normal in size. Bowel and peritoneum: Unenhanced bowel loops are normal in caliber. No free fluid. Lung bases: No basal pleural effusions. Heart size is normal. Bones and soft tissues: No ventral hernias. Bone marrow is of normal overall signal. IMPRESSION: 1. 1.1 cm pancreatic head cystic lesion. Differential diagnosis includes intraductal papillary mucinous neoplasm without demonstrated communication to the pancreatic duct, rare type 2 choledochal cyst, possibly duodenal diverticulum, pancreatic pseudocyst, or small serous pancreatic neoplasm. Pancreatic protocol (including contrast) MR is recommended in six months to document stability. 2. 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 3. 3.7 cm subcapsular right lobe hepatic hemangioma. Dictated by: Lakisha Watts M.D. on 12/06/2020 at 16:50 Approved by: Lakisha Watts M.D. on 12/06/2020 at 17:13
== END ==
PROVIDERS: Family Provider Internal Medicine; PCP Internal Medicine; Referring Provider Internal Medicine; Visit Provider Internal Medicine
DX: D49.0 Neoplasm of unspecified behavior of digestive system (principal); K86.2 Cyst of pancreas; D18.09 Hemangioma of other sites
CPT/HCPCS: 74181

== ENCOUNTER → 2021-03-21 14:48 | Outpatient (CLI) | payer OTHER, SELFPAY ==
--- NOTE | 2021-03-21 | DI.RAD.S_ITS ---
PROCEDURE: XR SHOULDER LT MIN 2V INDICATIONS: Pain in left shoulder TECHNIQUE: 3 views of the shoulder were acquired. COMPARISON: None. FINDINGS: Bones: No fractures or dislocations. No suspicious bony lesions. Visualized ribs appear intact. Mild periarticular osteophyte formation at the acromioclavicular and glenohumeral joints. Soft tissues: No suspicious soft tissue calcifications. IMPRESSION: Osteoarthritis. No acute fracture. No osseous lesion. If symptoms and/or clinical suspicion for pathology persist, further assessment with repeat, or advanced imaging (e.g., CT, MRI, or bone scan) may be helpful for further assessment. Dictated by: Zoila Pritchett M.D. on 03/21/2021 at 16:21 Approved by: Zoila Pritchett M.D. on 03/21/2021 at 16:23
== END ==
PROVIDERS: Family Provider Internal Medicine; PCP Internal Medicine; Referring Provider Internal Medicine; Visit Provider Student in an Organized Health Care Education/Training Program
DX: M25.512 Pain in left shoulder (principal); M19.012 Primary osteoarthritis, left shoulder
CPT/HCPCS: 73030

== ENCOUNTER → 2021-12-12 12:07 | Outpatient (CLI) | payer OTHER, SELFPAY ==
--- NOTE | 2021-12-12 | DI.MRI.S_ITS ---
PROCEDURE: MR LUMBAR SPINE WO CON INDICATIONS: Spinal stenosis, lumbar region with neurogenic claudication TECHNIQUE: Noncontrast sagittal T1 spin echo and T2 fast echo, sagittal STIR, and T2 fast spin echo through the lumbar spine. In cases with scoliosis, additional coronal T2 fast spin echo may be performed. COMPARISON: [facility], CT, CT ABDOMEN PELVIS W CON, 11/05/2019, 18:19. [facility], MR, L-SPINE WITHOUT CONTRAST, 01/10/2016, 10:36. FINDINGS: Image quality: Excellent. Alignment and Curvature: There is minimal retrolisthesis at L2-L3. Minimal anterolisthesis is seen at L4-L5 and L5-S1 Bone Marrow: Marrow is of normal overall signal. No acute vertebral body compression fractures. Spinal Cord: Conus medullaris terminates at the L1-L2 level. Visualized cord demonstrates normal signal and size. Paraspinous Soft Tissues: No paravertebral masses. T12-L1: Normal appearance. L1-L2: Mild loss of disc height is seen. Loss of disc signal is seen. Mild generalized disc bulge is seen. Mild to moderate bilateral neural foraminal narrowing can be seen. Mild central canal narrowing is seen. These imaging findings have progressed compared to the prior study. L2-L3: Moderate loss of disc height is seen. Loss of disc signal is seen. Moderate disc bulge is seen, which is eccentric to the right. Mild facet joint hypertrophy is seen. Associated hypertrophy of the ligamentum flavum can be seen. Mac VIII analy Moderate central canal narrowing is seen. These imaging findings have progressed compared to the prior study. L3-L4: The disc height is well-preserved. Loss of disc signal is seen at this level. Moderate generalized disc bulge is seen. Moderate facet joint hypertrophy is seen. Associated hypertrophy of the ligamentum flavum can be seen. Moderate bilateral neural foraminal narrowing is seen. Moderate central canal narrowing is seen. When comparison is made with the prior images, these findings are similar. L4-L5: The disc height is well-preserved. Loss of disc signal is seen at this level. Moderate generalized disc bulge is seen. Moderate facet joint hypertrophy is seen. Associated hypertrophy of the ligamentum flavum can be seen. There is at least moderate bilateral neural foraminal narrowing seen. There is a degree of compression seen upon the exiting nerve roots. Moderate central canal narrowing is seen. There is slight progression compared to the prior. L5-S1: Mild loss of disc height is seen. Loss of disc signal is seen. Mild generalized disc bulge is seen. Mild to moderate facet hypertrophy is seen. There is moderate right-sided and at least moderate left-sided neural foraminal narrowing. There is compression seen upon the exiting left L5 nerve root. Mild central canal narrowing is seen. These imaging findings have progressed compared to the prior study. S1-S2: There is a transitional disc seen at this level. IMPRESSION: Multiple levels of lumbar spine degenerative change are seen, which are overall mildly progressed compared to 2016. Dictated by: Julien Florez M.D. on 12/12/2021 at 12:29 Approved by: Julien Florez M.D. on 12/12/2021 at 12:43
== END ==
PROVIDERS: Family Provider Internal Medicine; PCP Student in an Organized Health Care Education/Training Program; Referring Provider Physical Medicine & Rehabilitation; Visit Provider Physical Medicine & Rehabilitation
DX: M47.816 Spondylosis without myelopathy or radiculopathy, lumbar region (principal); M47.817 Spondylosis without myelopathy or radiculopathy, lumbosacral region; M48.062 Spinal stenosis, lumbar region with neurogenic claudication; M48.07 Spinal stenosis, lumbosacral region
CPT/HCPCS: 72148

== ENCOUNTER → 2022-02-10 11:53 | Outpatient (CLI) | payer OTHER, SELFPAY ==
--- NOTE | 2022-02-10 11:55 | DI.RAD.S_ITS ---
PROCEDURE: XR ANKLE LT MIN 3V INDICATIONS: LEFT FOOT SWELLING AND BRUISING AFTER FALL TECHNIQUE: 3 views of the ankle were acquired. COMPARISON: None. FINDINGS: Bones: No fractures or dislocations. Ankle mortise is normally aligned. No suspicious bony lesions. Well-defined plantar and dorsal calcaneal enthesophytes are seen. Soft tissues: Mild lateral ankle soft tissue swelling is seen. No tibiotalar joint effusion. Achilles tendon appears normal. IMPRESSION: No acute ankle fracture or dislocation. Mild ankle soft tissue swelling. Dictated by: Zander Jean-Baptiste M.D. on 02/10/2022 at 16:56 Approved by: Zander Jean-Baptiste M.D. on 02/10/2022 at 16:57
--- NOTE | 2022-02-10 11:55 | DI.RAD.S_ITS ---
PROCEDURE: XR FOOT LT MIN 3V INDICATIONS: LEFT FOOT SWELLING AND BRUISING AFTER FALL TECHNIQUE: 3 views of the foot were acquired. COMPARISON: None. FINDINGS: Bones: Minimally displaced fractures involving 3rd and 4th metatarsal bases are seen. Moderate to severe 1st MTP joint osteoarthritic changes are seen with marked joint space narrowing, extensive subchondral sclerosis and cyst formation and extensive remodeling. Prominent marginal osteophyte formation is also noted. Moderate 1st interphalangeal joint osteoarthritic changes also seen. Well-defined plantar and dorsal calcaneal enthesophytes are seen.. No suspicious bony lesions. Soft tissues: No tibiotalar joint effusion. Achilles tendon appears normal. IMPRESSION: 1. Minimally displaced fracture involving 3rd and 4th metatarsal bases. 2. Severe left great toe osteoarthritis as above. Dictated by: Zander Jean-Baptiste M.D. on 02/10/2022 at 16:53 Approved by: Zander Jena-Baptiste M.D. on 02/10/2022 at 16:56
== END ==
PROVIDERS: Family Provider Internal Medicine; PCP Student in an Organized Health Care Education/Training Program; Referring Provider Student in an Organized Health Care Education/Training Program; Visit Provider Student in an Organized Health Care Education/Training Program
DX: S92.335A Nondisplaced fracture of third metatarsal bone, left foot, initial encounter for closed fracture (principal); S92.345A Nondisplaced fracture of fourth metatarsal bone, left foot, initial encounter for closed fracture; M79.672 Pain in left foot; M79.89 Other specified soft tissue disorders; W19.XXXA Unspecified fall, initial encounter
CPT/HCPCS: 73610; 73630

== ENCOUNTER 2022-07-23 20:03 | Emergency (ER) | payer OTHER, SELFPAY ==
[2022-07-23] VITALS (7 sets, daily range): BP systolic 145–176; BP diastolic 74–81; PULSE 88–92; RESP 18–29; TEMP 37.7; O2SAT 91–96; BMI 40.3
--- NOTE | 2022-07-23 20:27 | DI.RAD.S_ITS ---
PROCEDURE: XR CHEST 1V INDICATIONS: Shortness of breath TECHNIQUE: One view of the chest was acquired. COMPARISON: [facility], , CHEST 2 VIEW, 12/19/2006, 12:39. FINDINGS: Surgical changes and devices: None. Lungs and pleura: Mild patchy left lower lobe opacities in the retrocardiac region. No pleural effusion or pneumothorax. Mediastinum: Mediastinal contours appear normal. Heart size is normal. Bones and chest wall: No suspicious bony lesions. Overlying soft tissues appear unremarkable. IMPRESSION: Mild patchy retrocardiac opacities could represent atelectasis, aspiration, or pneumonia. Approved by: Minesh Armstrong M.D. on 07/23/2022 at 20:57
--- NOTE | 2022-07-23 20:35 | ED.SOB ---
HPI - SOB/Dyspnea General Chief Complaint: Shortness of Breath/Dyspnea Stated Complaint: COVID positive, sore throat, cough, SOB, LOC Time Seen by Provider: 07/23/22 20:34 Source: patient and family Mode of arrival: Ambulatory History of Present Illness HPI Narrative: Patient is an 86-year-old male history of hyperlipidemia presenting today with known COVID. His tested positive for COVID last week tested positive for COVID a couple days ago. He is had coughing spells quite significant so that he can not breathe. reports that he can not breathe and passes out it happened once yesterday and twice today. Has no chest pain. He only has shortness of breath when he is coughing. No abdominal pain nausea or vomiting. They recently traveled and flew back from [place] they were visiting. Related Data Allergies Allergy/AdvReac Type Severity Reaction Status Date / Time lisinopril AdvReac Verified 11/02/20 15:08 Review of Systems Review of Systems ROS Unobtainable: All systems reviewed & are unremarkable except as noted in HPI and below Patient History Medical History Hyperlipidemia Hypertension Social History Smoking Status: Never smoker Smoking Status: Never smoker alcohol intake frequency: a few times a week Substance Use Type: does not use Exam Initial Vital Signs Initial Vital Signs: Vital Signs Pulse Rate 90 07/23/22 20:14 Respiratory Rate 27 H 07/23/22 20:14 Pulse Oximetry 96 07/23/22 20:14 GENERAL: Alert pleasant well-appearing 86-year-old male severe distress HEENT: Head atraumatic,EOMI, pupils reactive, face symmetric, [moist] mucous membranes CARDIOVASCULAR: Regular rate and rhythm without murmurs, rubs or gallops. RESPIRATORY: Breath sounds equal bilaterally, no wheezes rales or rhonchi. Speaks in full symptoms without respiratory distress, cough the lot with deep breathing ABDOMEN: Soft, nontender. Normoactive bowel sounds all 4 quadrants. No guarding or rebound. EXTREMITIES: Normal range of motion, no clubbing or edema. Neurovascularly intact NEUROLOGICAL: Alert and oriented x4.Normal gait and speech. Cranial nerves II through XII grossly intact. SKIN: Warm, dry, no laceration, no petechiae, no rashes or lesions. Course Orders Ordered: ED Orders 07/23/22 20:27 XR chest 1V Stat EKG-12 Lead Stat Measure peak expiratory flow ONCE RT Consult Eval and Treat NOW 07/23/22 20:30 Complete Blood Count AUTO DIFF Stat Comprehensive Metabolic Panel Stat D Dimer Stat Lactate (Lactic Acid) Stat NT-proBNP (BNP-Adult 18+) Stat Prothrombin Time INR Stat Troponin & CK Cardiac Panel Stat Discontinued Medications Albuterol (Albuterol Hfa Prepack) 1 box MISC SEEINSTR ONE Stop: 07/23/22 20:59 Last Admin: 07/23/22 21:03 Dose: 1 box Documented By: Albuterol/Ipratropium (Albuterol/Ipratropium 3 Ml Ampul) 3 ml INH NOW ONE Stop: 07/23/22 20:36 Last Admin: 07/23/22 22:15 Dose: Not Given Documented By: MLM Vital Signs Vital signs: Vital Signs - 8 hr 07/23/22 20:15 07/23/22 20:14 07/23/22 20:15 Temperature 99.8 F H Pulse Rate 92 H 90 91 H Respiratory Rate 18 27 H 29 H Blood Pressure 158/74 H Pulse Oximetry 92 96 95 Oxygen Delivery Method Room Air 07/23/22 20:15 07/23/22 20:30 07/23/22 20:31 Temperature Pulse Rate 88 Respiratory Rate 29 H Blood Pressure 158/74 H 145/77 H Pulse Oximetry 91 Oxygen Delivery Method 07/23/22 20:31 07/23/22 21:00 07/23/22 21:00 Temperature Pulse Rate 90 90 Respiratory Rate 29 H 27 H Blood Pressure 166/77 H Pulse Oximetry 92 93 Oxygen Delivery Method 07/23/22 21:30 07/23/22 21:30 07/23/22 22:00 Temperature Pulse Rate 90 Respiratory Rate 26 H Blood Pressure 174/81 H 176/78 H Pulse Oximetry 92 Oxygen Delivery Method 07/23/22 22:00 Temperature Pulse Rate 88 Respiratory Rate 26 H Blood Pressure Pulse Oximetry 92 Oxygen Delivery Method MDM - SOB/Dyspnea Lab Data 07/23/22 20:30 07/23/22 20:30 Labs: Lab Results 07/23/22 07/23/22 07/23/22 Range/Units 20:30 20:30 20:30 WBC 8.6 (4.5-11.0) X10^3/uL RBC 5.55 (4.5-5.9) X10^6/uL Hgb 16.8 (13.5-17.5) g/dL Hct 49.2 (41-53) % MCV 88.6 (80-100) fL MCH 30.3 (26-34) PG MCHC 34.2 (30-36) % RDW 14.3 (11.6-14.8) % Plt Count 119 L (150-400) X10^3/uL Neut % (Auto) 70.0 (50-75) % Lymph % (Auto) 11.9 L (25-40) % Ogle % (Auto) 17.2 H (3-14) % Eos % (Auto) 0.6 L (2-4) % Baso % (Auto) 0.3 (0-2) % Neut # (Auto) 6000 (0770-4381) /uL Lymph # (Auto) 1000 L (9875-4723) /uL Ogle # (Auto) 1500 H (0-900) /uL Eos # (Auto) 0 (0-450) /uL Baso # (Auto) 0 (0-100) /uL PT 12.7 (10.1-12.7) SECONDS INR 1.1 (0.9-1.3) D-Dimer (<500) ng/ml Sodium 137 (137-145) mmol/L Potassium 4.2 (3.4-5.1) mmol/L Chloride 99 (98-107) mmol/L Carbon Dioxide 28 (22-32) mmol/L BUN 13 (9-20) mg/dL Creatinine 1.12 (0.66-1.25) mg/dL Estimated GFR > 60 (>60) mL/min BUN/Creatinine Ratio 11.6 (6-22) Glucose 142 H (80-110) mg/dL Lactate (0.7-2.1) mmol/L Calcium 9.1 (8.4-10.2) mg/dL Total Bilirubin 1.4 H (0.2-1.3) mg/dL AST 38 (17-59) IU/L ALT 31 (<50) IU/L Alkaline Phosphatase 82 (38-126) U/L Total Creatine Kinase (55-170) U/L CK-MB (CK-2) CK-MB (CK-2) Rel Index Troponin I Cancelled NT-Pro-B Natriuret Pep 57 (<450) pg/mL Total Protein 8.3 H (6.3-8.2) g/dL Albumin 4.9 (3.5-5.0) g/dL Globulin 3.4 (1.7-4.1) g/dL Albumin/Globulin Ratio 1.4 (1.0-2.8) 07/23/22 07/23/22 07/23/22 Range/Units 20:30 20:30 20:30 WBC (4.5-11.0) X10^3/uL RBC (4.5-5.9) X10^6/uL Hgb (13.5-17.5) g/dL Hct (41-53) % MCV (80-100) fL MCH (26-34) PG MCHC (30-36) % RDW (11.6-14.8) % Plt Count (150-400) X10^3/uL Neut % (Auto) (50-75) % Lymph % (Auto) (25-40) % Ogle % (Auto) (3-14) % Eos % (Auto) (2-4) % Baso % (Auto) (0-2) % Neut # (Auto) (0147-9913) /uL Lymph # (Auto) (6423-4145) /uL Ogle # (Auto) (0-900) /uL Eos # (Auto) (0-450) /uL Baso # (Auto) (0-100) /uL PT (10.1-12.7) SECONDS INR (0.9-1.3) D-Dimer 480 (<500) ng/ml Sodium (137-145) mmol/L Potassium (3.4-5.1) mmol/L Chloride (98-107) mmol/L Carbon Dioxide (22-32) mmol/L BUN (9-20) mg/dL Creatinine (0.66-1.25) mg/dL Estimated GFR (>60) mL/min BUN/Creatinine Ratio (6-22) Glucose (80-110) mg/dL Lactate 2.0 (0.7-2.1) mmol/L Calcium (8.4-10.2) mg/dL Total Bilirubin (0.2-1.3) mg/dL AST (17-59) IU/L ALT (<50) IU/L Alkaline Phosphatase (38-126) U/L Total Creatine Kinase 82 (55-170) U/L CK-MB (CK-2) TNP CK-MB (CK-2) Rel Index TNP Troponin I < 0.012 NT-Pro-B Natriuret Pep (<450) pg/mL Total Protein (6.3-8.2) g/dL Albumin (3.5-5.0) g/dL Globulin (1.7-4.1) g/dL Albumin/Globulin Ratio (1.0-2.8) Imaging Data Chest x-ray: Radiologist's Impression: PROCEDURE:? XR CHEST 1V ? INDICATIONS:? Shortness of breath ? TECHNIQUE:? One view of the chest was acquired.? ? COMPARISON:? [facility], , CHEST 2 VIEW, 12/19/2006, 12:39. ? FINDINGS:? ? Surgical changes and devices:? None.? ? Lungs and pleura:? Mild patchy left lower lobe opacities in the retrocardiac region.? No pleural effusion or pneumothorax. ? Mediastinum:? Mediastinal contours appear normal.? Heart size is normal.? ? Bones and chest wall:? No suspicious bony lesions.? Overlying soft tissues appear unremarkable.? ? IMPRESSION:? Mild patchy retrocardiac opacities could represent atelectasis, aspiration, or pneumonia. ? ? ? Approved by: Minesh Armstrong M.D. on 07/23/2022 at 20:57? ECG Data Interpretation: Normal sinus rhythm rate 89 OR interval 144 QRS [address] changes it is loud artifact noted MDM Narrative Medical decision making narrative: Patient is 86-year-old male who has coughing episodes and decreasing breathing. He is positive for COVID. Blood work is overall reassuring his D-dimer is negative despite traveling. No leukocytosis anemia electrolyte abnormality or elevation in troponin. He does not have any pneumonia on x-ray. He is not hypoxic at this time there is no indication for admission. Supportive care only. Discussed with him they do pulse oximeter at home recommended that they check it randomly. He is given an inhaler with spacer and training by respiratory. His symptoms are likely related to his current COVID infection. Discharge Plan Departure Patient Disposition: Home Clinical Impression: COVID-19 Instructions: COVID-19 Activity Restrictions/Additional Instructions: *You have been diagnosed with COVID-19 *What to do: Unfortunately there is no medicine for your COVID. Stay hydrated monitor oxygen at home make sure that it is 90% or more. *Continue to take medications as directed Tylenol or Motrin as directed for pain. Albuterol inhaler 1-2 puffs if needed for couging or shortness of breath *Follow up with your primary care provider in 2-3 days or call [phone] *Return to ER if you should have increasing shortness of breath, chest pain [or] any new, worsening or concerning symptoms Referrals: Sruthi Kelley PA-C [Primary Care Provider] - Stand Alone Forms: Patient Portal/API
[2022-07-23 20:58] LABS: Add Manual Diff / Slide Review NO; Basophils Absolute Auto 0 /uL (0-100); Basophils Percent Auto 0.3 % (0-2); Eosinophils Absolute Auto 0 /uL (0-450); Eosinophils Percent Auto 0.6 % (2-4); Hematocrit 49.2 % (41-53); Hemoglobin 16.8 g/dL (13.5-17.5); Lymphocytes Absolute Auto 1000 /uL (1100-4500); Lymphocytes Percent Auto 11.9 % (25-40); Mean Corpuscular HGB Conc 34.2 % (30-36); Mean Corpuscular Hemoglobin 30.3 PG (26-34); Mean Corpuscular Volume 88.6 fL (80-100); Monocytes Absolute Auto 1500 /uL (0-900); Monocytes Percent Auto 17.2 % (3-14); Neutrophils Absolute Auto 6000 /uL (1500-7000); Platelet Count 119 X10^3/uL (150-400); Red Blood Cell Count 5.55 X10^6/uL (4.5-5.9); Red Cell Distribution Width 14.3 % (11.6-14.8); White Blood Cell Count 8.6 X10^3/uL (4.5-11.0)
[2022-07-23] MEDS: ALBUTEROL HFA PREPACK 1 BOX MISC (21:03)
[2022-07-23 21:04] LABS: INR 1.1 (0.9-1.3); Prothrombin Time 12.7 SECONDS (10.1-12.7)
[2022-07-23 21:11] LABS: D Dimer 480 ng/ml (<500)
[2022-07-23 21:12] LABS: Creatine Kinase 82 U/L (55-170)
[2022-07-23 21:13] LABS: Alanine Aminotransferase 31 IU/L (<50); Albumin 4.9 g/dL (3.5-5.0); Albumin Globulin Ratio 1.4 (1.0-2.8); Alkaline Phosphatase 82 U/L (38-126); Aspartate Aminotransferase 38 IU/L (17-59); BUN Creatinine Ratio 11.6 (6-22); Bilirubin Total 1.4 mg/dL (0.2-1.3); Blood Urea Nitrogen 13 mg/dL (9-20); Calcium 9.1 mg/dL (8.4-10.2); Carbon Dioxide 28 mmol/L (22-32); Chloride 99 mmol/L (98-107); Estimated Glomerular Filt Rate > 60 mL/min (>60); Globulin 3.4 g/dL (1.7-4.1); Glucose 142 mg/dL (80-110); HEMOLYSIS 18 (0-50); Potassium 4.2 mmol/L (3.4-5.1); Sodium 137 mmol/L (137-145); Total Protein 8.3 g/dL (6.3-8.2)
[2022-07-23 21:25] LABS: NT-proBNP (BNP-Adult 18+) 57 pg/mL (<450); Troponin I < 0.012 ng/mL (0.01-0.034)
== END 2022-07-23 22:34 | disposition home or self-care (01) ==
PROVIDERS: Emergency Provider Emergency Medicine; Family Provider Internal Medicine; PCP Student in an Organized Health Care Education/Training Program
DX: U07.1 COVID-19 (principal); I10 Essential (primary) hypertension
CPT/HCPCS: 36415; 71045; 80053; 82550; 83605; 83880; 84484; 85025; 85379; 85610; 93005; 93010; 94640; 99284

== ENCOUNTER → 2022-09-01 16:49 | Outpatient (CLI) | payer OTHER, SELFPAY ==
--- NOTE | 2022-09-01 17:01 | DI.MRI.S_ITS ---
PROCEDURE: MR LUMBAR SPINE WO CON INDICATIONS: LUMBAR RADICULOPATHY TECHNIQUE: Noncontrast sagittal T1 spin echo and T2 fast echo, sagittal STIR, and T2 fast spin echo through the lumbar spine. In cases with scoliosis, additional coronal T2 fast spin echo may be performed. COMPARISON: [facility], RF, LUMBAR SPINE INTERIAMINAR, 06/27/2022, 8:40. [facility], MR, MR LUMBAR SPINE WO CON, 12/12/2021, 12:11. FINDINGS: Image quality: Excellent. Alignment and Curvature: Trace retrolisthesis L2 on three, trace anterolisthesis L4 on five and L5 on S1. Bone Marrow: No acute vertebral body fractures or suspicious osseous edema a few small Schmorl's nodes with minimal surrounding type 2 Modic changes are present in L2 and L4. No progression since the prior exam. Spinal Cord: Conus medullaris terminates at the L1 level. Visualized cord demonstrates normal signal and size. Paraspinous Soft Tissues: No paravertebral masses. T12-L1: Normal appearance. L1-L2: Mild disc height loss and minimal circumferential disc osteophyte. Mild facet arthropathy and ligamentum flavum hypertrophy. Mild left foraminal narrowing, slightly progressed.. L2-L3: Moderate disc height loss and circumferential disc osteophyte. Moderate ligamentum flavum hypertrophy. Mild central canal narrowing including near obliteration of the CSF space. Moderate right and mild left foraminal narrowing, slightly progressed. L3-L4: Mild to moderate circumferential disc osteophyte. Moderate ligamentum flavum hypertrophy and facet arthropathy. Mild central canal narrowing with preservation CSF space and lateral recesses. Mild bilateral foraminal narrowing. No significant changes. L4-L5: Mild broad-based posterior disc bulge. This contacts the exiting left L4 nerve root beyond the foramen. Moderate facet and ligamentum flavum hypertrophy. Mild to moderate bilateral neural foraminal narrowing, unchanged compared to the prior study. There is narrowing of the bilateral lateral recesses and mild central canal narrowing, stable. L5-S1: Moderate bilateral facet arthropathy. Mild bilateral foraminal narrowing, slightly progressed. Disc osteophyte contacts but does not displace the exiting left L5 nerve root. This was present previously. IMPRESSION: 1. Multilevel degeneration as described above with only slight overall progression since the prior study. 2. Most extensively involved level remains at L4-5 where there is narrowing of both lateral recesses, likely affecting both L5 nerve roots. Dictated by: Lakisha Watts M.D. on 09/04/2022 at 11:43 Approved by: Lakisha Watts M.D. on 09/04/2022 at 12:25
== END ==
PROVIDERS: Family Provider Internal Medicine; PCP Student in an Organized Health Care Education/Training Program; Referring Provider Physical Medicine & Rehabilitation; Visit Provider Physical Medicine & Rehabilitation
DX: M47.26 Other spondylosis with radiculopathy, lumbar region (principal); M47.27 Other spondylosis with radiculopathy, lumbosacral region
CPT/HCPCS: 72148

== ENCOUNTER 2022-12-02 18:23 | Observation (INO) | payer OTHER, SELFPAY ==
[2022-12-02] VITALS (30 sets, daily range): BP systolic 144–182; BP diastolic 66–135; PULSE 61–73; RESP 10–24; TEMP 36.3–36.9; O2SAT 86–98; BMI 31.9
--- NOTE | 2022-12-02 18:29 | DI.CT.S_ITS ---
PROCEDURE: CT HEAD/BRAIN WO CON INDICATIONS: trauma TECHNIQUE: Noncontrast 4.5 mm thick angled axial sections acquired from the foramen magnum to the vertex, with coronal and sagittal reformats. For radiation dose reduction, the following was used: automated exposure control, adjustment of mA and/or kV according to patient size. COMPARISON: None. FINDINGS: Image quality: Excellent. CSF spaces: Basal cisterns are patent. No extra-axial fluid collections. The ventricles are symmetric in size and shape. Brain: No intracranial bleeds or masses. There is cerebral volume loss for age, with resultant ventricular and sulcal prominence. There are periventricular and deep white matter chronic small vessel ischemic changes. There is intracranial internal carotid artery atherosclerosis. Skull and face: There is a scalp hematoma seen posteriorly and to the left of the midline, as on series 2, image 32. No associated calvarial fracture is seen. Calvarium and visualized facial bones appear intact, without suspicious lesions. Sinuses: Visualized sinuses and mastoids are clear. IMPRESSION: Left posterior scalp hematoma seen, without an associated calvarial fracture. No definite associated intracranial hemorrhage is seen. Dictated by: Julien Florez M.D. on 12/02/2022 at 17:51 Approved by: Julien Florez M.D. on 12/02/2022 at 17:53
--- NOTE | 2022-12-02 18:29 | DI.CT.S_ITS ---
PROCEDURE: CT CHEST ABD PEL W CON INDICATIONS: trauma thoracic back pain TECHNIQUE: After the administration of intravenous contrast, 5 mm thick sections acquired from the lung apices to the symphysis. 2.5 mm thick coronal and sagittal reformats were acquired. Additional 7 mm thick coronal maximum intensity projection (MIP) reformats acquired through the lungs. Optional 10-minute delayed imaging may be performed from the kidneys to the bladder. For radiation dose reduction, the following was used: automated exposure control, adjustment of mA and/or kV according to patient size. COMPARISON: [facility], CT, CT ABDOMEN PELVIS W CON, 11/05/2019, 18:19. FINDINGS: CHEST: Lungs: No pulmonary contusions or lacerations. No acute airspace opacities. No pneumothorax or hemothorax. Mediastinum: Small Anterior mediastinal hematoma abutting the manubrium. No pericardial effusion. Thoracic aorta and pulmonary arteries demonstrate normal size and enhancement. No mediastinal or hilar adenopathy. Esophagus is normal in caliber. Chest wall: Acute mildly displaced transverse fracture of the manubrium. No acute displaced rib fractures. No subcutaneous emphysema. No axillary or supraclavicular adenopathy. ABDOMEN: Solid organs: No acute traumatic liver injury identified. Rounded structure inferior right lobe of the liver with adjacent wedge-shaped enhancement and suggestion of peripheral nodular discontinuous enhancement, possible hemangioma present as before. Gallbladder is unremarkable. Biliary system is non-dilated. No dilation of the main pancreatic duct. Similar hypodensity at the pancreatic head, 1.3 cm, probable cyst, not significantly changed. Spleen is normal in size and enhancement, without lacerations. No adrenal hematomas. No hydronephrosis. Nonobstructing right renal stone present. Peritoneum and bowel: No free fluid or air. Unenhanced bowel loops demonstrate normal wall thickness and caliber. Nodes and vessels: No retroperitoneal or mesenteric adenopathy. Aorta and inferior vena cava are normal in size and enhancement. PELVIS: Genitourinary: Bladder wall thickness is normal. Prostate gland not visualized could be surgically absent. Miscellaneous: No adenopathy. Bones: Pelvic ring and hip joints appear intact. No vertebral compression fractures. IMPRESSION: 1. Acute mildly displaced manubrium fracture with associated small anterior mediastinal hematoma. 2. Indeterminate hepatic structure possible hemangioma redemonstrated, not significantly changed. Characterization with liver protocol MRI or CT could be performed as clinically indicated. 3. 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 Could consider imaging follow-up in 12-24 months or other interval at clinical discretion. Dictated by: Minesh Feliz M.D. on 12/02/2022 at 19:03 Approved by: Minesh Feliz M.D. on 12/02/2022 at 19:16
--- NOTE | 2022-12-02 18:29 | DI.CT.S_ITS ---
PROCEDURE: CT CERVICAL SPINE WO CON INDICATIONS: trauma TECHNIQUE: Noncontrast 3 mm thick sections acquired from the skull base to the T4 level. Sagittal and coronal reformats were then constructed. For radiation dose reduction, the following was used: automated exposure control, adjustment of mA and/or kV according to patient size. COMPARISON: None. FINDINGS: Bones: No fractures or dislocations. Visualized superior ribs are intact. Multilevel degenerative changes of the cervical spine. Soft tissues: Prevertebral soft tissues are normal in thickness. No paravertebral hematomas. No apical pneumothoraces. IMPRESSION: No acute cervical spine fracture identified. Dictated by: Minesh Feliz M.D. on 12/02/2022 at 18:58 Approved by: Minesh Feliz M.D. on 12/02/2022 at 19:03
--- NOTE | 2022-12-02 18:32 | ED.TRAUMA ---
HPI - Trauma General Chief Complaint: Trauma Stated Complaint: Modified Trauma Time Seen by Provider: 12/02/22 18:29 History of Present Illness HPI narrative: Patient is a 87-year-old male history of hyperlipidemia presenting today as a modified trauma after a 6-12 ft fall. He was standing on his deck looking at gutters when a railing broke and he fell off the deck backwards hitting his head. Possible brief loss consciousness. Not on any antiplatelet or anticoagulation medications. No nausea vomiting. No numbness tingling or weakness. Complaining of cervical and thoracic back pain. He is obvious posterior head abrasion/laceration. Not complaining of any more pain or injury. Related Data Home Medications Medication Instructions Recorded Confirmed duloxetine 60 mg capsule,delayed 60 mg PO DAILY 12/02/22 12/02/22 release gabapentin 300 mg capsule 300 mg PO 3XD 12/02/22 12/02/22 rosuvastatin 10 mg tablet 10 mg PO ONCE PM 12/02/22 12/02/22 Allergies Allergy/AdvReac Type Severity Reaction Status Date / Time lisinopril AdvReac Verified 12/02/22 18:46 Review of Systems Review of Systems ROS Unobtainable: All systems reviewed & are unremarkable except as noted in HPI and below Patient History Medical History (Updated 12/02/22 @ 23:42 by Sandy Sutherland DO) Hyperlipidemia Hypertension Social History household members: spouse Smoking Status: Never smoker alcohol intake: current Smoking Status: Never smoker alcohol intake frequency: a few times a week Substance Use Type: does not use Exam Initial Vital Signs Initial Vital Signs: Vital Signs Temperature 97.3 F L 12/02/22 18:23 Pulse Rate 66 12/02/22 18:23 Respiratory Rate 14 12/02/22 18:23 Blood Pressure 147/98 H 12/02/22 18:23 Pulse Oximetry 97 12/02/22 18:23 Oxygen Delivery Method Room Air 12/02/22 18:23 GENERAL: Alert well-appearing 87-year-old male HEENT: Head normocephalic no significant depressions,, EOMI, pupils reactive, face symmetric, moist mucous membranes, NECK: C-spine collar in place CARDIOVASCULAR: Regular rate and rhythm without murmurs, rubs or gallops. RESPIRATORY: Breath sounds equal bilaterally, no wheezes rales or rhonchi. No crepitations, no subcutaneous air, chest is nontender, no signs of trauma. Mild sternal discomfort no obvious contusion ABDOMEN: Soft, nontender. Normoactive bowel sounds all 4 quadrants. No guarding or rebound. BACK: Nontender vertebrae, no step-offs, no contusions PELVIS: stable. EXTREMITIES: Normal range of motion, no clubbing or edema. Right upper extremity: Within normal limits Left upper extremity: Within normal limits Right lower extremity: Within normal limits Left lower extremity:[Within normal limits] NEUROLOGICAL: Cranial nerves II through XII grossly intact. Normal gait and speech. SKIN: Posterior head abrasion/laceration 5cm Procedures Laceration Repair Laceration 1: Site: scalp Size (cm): 5 Description: linear Depth: simple, single layer Local Anesthetic: lidocaine 1% and with epi Amount of anesthesia used (mL): 3 Pre-repair: wound explored, irrigated extensively and deep structures intact Skin layer closed with: ki (5) Course Orders Ordered: Acetaminophen (Acetaminophen 325 Mg Tablet) 650 mg PO Q6HR PRN PRN Reason: Fever/Mild Pain (1-3) Hydrocodone Bitart/Acetaminophen (Hydrocodone/Acet 5/325 Tablet) 1 tab PO Q4HR PRN PRN Reason: Pain, Moderate (4-6) Last Admin: 12/02/22 21:51 Dose: 1 tab Documented By: CT Hydromorphone HCl (Hydromorphone 0.5 Mg Inj) 0.25 mg IV Q2H PRN PRN Reason: Pain, Severe (7-10) Last Admin: 12/02/22 22:51 Dose: 0.25 mg Documented By: CT Ondansetron HCl (Ondansetron 4 Mg/2 Ml Inj) 4 mg IV Q4HR PRN PRN Reason: Nausea And Vomiting Discontinued Medications Morphine Sulfate (Morphine 2 Mg/Ml Inj) 2 mg IV NOW ONE Stop: 12/02/22 19:41 Last Admin: 12/02/22 19:48 Dose: 2 mg Documented By: MLM Morphine Sulfate (Morphine 2 Mg/Ml Inj) 2 mg IV Q4HR PRN PRN Reason: Pain, Moderate (4-6) MDM - Trauma Lab Data 12/02/22 18:29 12/02/22 18:29 Labs: Lab Results 12/02/22 Range/Units 18:29 WBC 10.1 (4.5-11.0) X10^3/uL RBC 5.03 (4.5-5.9) X10^6/uL Hgb 15.6 (13.5-17.5) g/dL Hct 45.5 (41-53) % MCV 90.4 (80-100) fL MCH 30.9 (26-34) PG MCHC 34.2 (30-36) % RDW 14.3 (11.6-14.8) % Plt Count 167 (150-400) X10^3/uL Neut % (Auto) 74.6 (50-75) % Lymph % (Auto) 15.1 L (25-40) % [place] % (Auto) 9.0 (3-14) % Eos % (Auto) 0.9 L (2-4) % Baso % (Auto) 0.4 (0-2) % Neut # (Auto) 7600 H (3453-5634) /uL Lymph # (Auto) 1500 (5693-3531) /uL [place] # (Auto) 900 (0-900) /uL Eos # (Auto) 100 (0-450) /uL Baso # (Auto) 0 (0-100) /uL Sodium 141 (137-145) mmol/L Potassium 4.0 (3.4-5.1) mmol/L Chloride 105 (98-107) mmol/L Carbon Dioxide 28 (22-32) mmol/L BUN 11 (9-20) mg/dL Creatinine 0.90 (0.66-1.25) mg/dL Estimated GFR > 60 (>60) mL/min BUN/Creatinine Ratio 12.2 (6-22) Glucose 114 H (80-110) mg/dL Calcium 9.7 (8.4-10.2) mg/dL Total Bilirubin 0.8 (0.2-1.3) mg/dL AST 45 (17-59) IU/L ALT 40 (<50) IU/L Alkaline Phosphatase 66 (38-126) U/L Total Creatine Kinase 53 L (55-170) U/L Troponin I < 0.012 (0.01-0.034) ng/mL Total Protein 7.3 (6.3-8.2) g/dL Albumin 4.3 (3.5-5.0) g/dL Globulin 3.0 (1.7-4.1) g/dL Albumin/Globulin Ratio 1.4 (1.0-2.8) Imaging Data CT scan - abdomen/pelvis: Radiologist's Impression: PROCEDURE: CT CHEST ABD PEL W CON INDICATIONS: trauma thoracic back pain TECHNIQUE: After the administration of intravenous contrast, 5 mm thick sections acquired from the lung apices to the symphysis. 2.5 mm thick coronal and sagittal reformats were acquired. Additional 7 mm thick coronal maximum intensity projection (MIP) reformats acquired through the lungs. Optional 10-minute delayed imaging may be performed from the kidneys to the bladder. For radiation dose reduction, the following was used: automated exposure control, adjustment of mA and/or kV according to patient size. COMPARISON: [facility], CT, CT ABDOMEN PELVIS W CON, 11/05/2019, 18:19. FINDINGS: CHEST: Lungs: No pulmonary contusions or lacerations. No acute airspace opacities. No pneumothorax or hemothorax. Mediastinum: Small Anterior mediastinal hematoma abutting the manubrium. No pericardial effusion. Thoracic aorta and pulmonary arteries demonstrate normal size and enhancement. No mediastinal or hilar adenopathy. Esophagus is normal in caliber. Chest wall: Acute mildly displaced transverse fracture of the manubrium. No acute displaced rib fractures. No subcutaneous emphysema. No axillary or supraclavicular adenopathy. ABDOMEN: Solid organs: No acute traumatic liver injury identified. Rounded structure inferior right lobe of the liver with adjacent wedge-shaped enhancement and suggestion of peripheral nodular discontinuous enhancement, possible hemangioma present as before. Gallbladder is unremarkable. Biliary system is non-dilated. No dilation of the main pancreatic duct. Similar hypodensity at the pancreatic head, 1.3 cm, probable cyst, not significantly changed. Spleen is normal in size and enhancement, without lacerations. No adrenal hematomas. No hydronephrosis. Nonobstructing right renal stone present. Peritoneum and bowel: No free fluid or air. Unenhanced bowel loops demonstrate normal wall thickness and caliber. Nodes and vessels: No retroperitoneal or mesenteric adenopathy. Aorta and inferior vena cava are normal in size and enhancement. PELVIS: Genitourinary: Bladder wall thickness is normal. Prostate gland not visualized could be surgically absent. Miscellaneous: No adenopathy. Bones: Pelvic ring and hip joints appear intact. No vertebral compression fractures. IMPRESSION: 1. Acute mildly displaced manubrium fracture with associated small anterior mediastinal hematoma. 2. Indeterminate hepatic structure possible hemangioma redemonstrated, not significantly changed. Characterization with liver protocol MRI or CT could be performed as clinically indicated. 3. 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 Could consider imaging follow-up in 12-24 months or other interval at clinical discretion. Dictated by: Minesh Feliz M.D. on 12/02/2022 at 19:03 ECG Data Interpretation: Sinus rhythm with PACs rate 71 AL interval 172 QRS [address] changes similar prior MDM Narrative Medical decision making narrative: Patient 87-year-old male not on anticoagulation presenting today after fall off deck about 6-12 feet. He has posterior head laceration which was easily stable. Imaging including head CT CC line CT chest abdomen pelvis CT and right elbow x-ray have all been reviewed. He is found to have a mildly displaced manubrium fracture with anterior mediastinal hematoma. Not complaining of pain there unless was palpated. He really was complaining of pain in his back possibly referred pain but he has no vertebral fractures. Pain is well-controlled. Blood work has been reviewed and is overall reassuring without any clinical significant Dr. Clements on-call for surgery updated patient's symptoms test results. Agrees to observation and tele monitoring. Discharge Plan Departure Patient Disposition: Admitted as Observation Clinical Impression: Closed fracture of manubrium Admit Date/Time: 12/02/22 19:41 Admit Provider: Diego Clements
[2022-12-02 18:41] LABS: Add Manual Diff / Slide Review NO; Basophils Absolute Auto 0 /uL (0-100); Basophils Percent Auto 0.4 % (0-2); Eosinophils Absolute Auto 100 /uL (0-450); Eosinophils Percent Auto 0.9 % (2-4); Hematocrit 45.5 % (41-53); Hemoglobin 15.6 g/dL (13.5-17.5); Lymphocytes Absolute Auto 1500 /uL (1100-4500); Lymphocytes Percent Auto 15.1 % (25-40); Mean Corpuscular HGB Conc 34.2 % (30-36); Mean Corpuscular Hemoglobin 30.9 PG (26-34); Mean Corpuscular Volume 90.4 fL (80-100); Monocytes Absolute Auto 900 /uL (0-900); Neutrophils Absolute Auto 7600 /uL (1500-7000); Neutrophils Percent Auto 74.6 % (50-75); Platelet Count 167 X10^3/uL (150-400); Red Blood Cell Count 5.03 X10^6/uL (4.5-5.9); Red Cell Distribution Width 14.3 % (11.6-14.8); White Blood Cell Count 10.1 X10^3/uL (4.5-11.0)
[2022-12-02 18:53] LABS: Alanine Aminotransferase 40 IU/L (<50); Albumin 4.3 g/dL (3.5-5.0); Albumin Globulin Ratio 1.4 (1.0-2.8); Alkaline Phosphatase 66 U/L (38-126); Aspartate Aminotransferase 45 IU/L (17-59); BUN Creatinine Ratio 12.2 (6-22); Bilirubin Total 0.8 mg/dL (0.2-1.3); Blood Urea Nitrogen 11 mg/dL (9-20); Calcium 9.7 mg/dL (8.4-10.2); Carbon Dioxide 28 mmol/L (22-32); Chloride 105 mmol/L (98-107); Creatine Kinase 53 U/L (55-170); Estimated Glomerular Filt Rate > 60 mL/min (>60); Glucose 114 mg/dL (80-110); HEMOLYSIS < 15 (0-50); Sodium 141 mmol/L (137-145); Total Protein 7.3 g/dL (6.3-8.2)
[2022-12-02 19:04] LABS: Troponin I < 0.012 ng/mL (0.01-0.034)
--- NOTE | 2022-12-02 19:45 | DI.RAD.S_ITS ---
PROCEDURE: XR ELBOW RT MIN 3V INDICATIONS: pain TECHNIQUE: 3 views of the elbow were acquired. COMPARISON: None. FINDINGS: Bones: No fractures or dislocations. No suspicious bony lesions. Soft tissues: No elbow joint effusion. No suspicious soft tissue calcifications. IMPRESSION: No trauma found. Normal alignment. Dictated by: Killian Quezada M.D. on 12/02/2022 at 20:20 Approved by: Killian Quezada M.D. on 12/02/2022 at 20:20
[2022-12-02] MEDS: MORPHINE 2 MG/ML INJ IV (19:48)
[2022-12-02] MEDS: HYDROCODONE/ACET 5/325 TABLET 1 TAB PO (21:51)
[2022-12-02] MEDS: HYDROMORPHONE 0.5 MG INJ 0.25 MG IV (22:51)
[2022-12-03] VITALS: BP 149/62; PULSE 86; RESP 19; TEMP 37.3; O2SAT 95
[2022-12-03] MEDS: HYDROCODONE/ACET 5/325 TABLET 1 TAB PO ×3 (06:40→18:11)
[2022-12-03 08:00] VITALS: BP 157/77; PULSE 78; RESP 17; TEMP 36.1; O2SAT 95
[2022-12-03] MEDS: ACETAMINOPHEN 325 MG TABLET 650 MG PO (10:34)
[2022-12-03] MEDS: ONDANSETRON 4 MG/2 ML INJ IV ×3 (11:39→21:26)
[2022-12-03 11:50] VITALS: BP 142/60
[2022-12-03 11:51] VITALS: BP 155/73
[2022-12-03 12:00] VITALS: BP 155/73; PULSE 85; RESP 17; TEMP 36.2; O2SAT 95
--- NOTE | 2022-12-03 12:47 | PC.NURSE ---
Pt A&Ox4, no c/o pain when laying down, not moving. WOODWORKER HELPER, Jorge and I got pt up to ambulate w/ FWW, spouse also present in room. Pt had a tough time rolling in bed d/t R shoulder pain and neck/back pain when moving around. 1 PA to assist to sit up and 1 PA assist to stand, but pt tolerated movement well. Pt c/o of R shoulder pain when trying to pull himself up, 8/10. Pt walked around with the FWW well, but had c/o lower back pain, 6/10 which is more than his normal baseline from chronic low back pain. Pt also c/o SOB, but probably d/t his mildly displaced manubrium fracture with anterior mediastinal hematoma. Pt had no c/o dizziness or lightheadedness, and not orthostatic: laying, 142/60 & standing, 155/73. When pt ambulated back to bed after standing in restroom, he became suddenly nauseated, Zofran administred IV, effective, but when it was lunch time he still had no appetite, which he said was not how he usually is. Elizabeth PO administered to help R shoulder and lower back with 5/10 pain after ambulating and resting in bed for a little bit. Care management updated. MD notified. Care plan continues.
--- NOTE | 2022-12-03 13:13 | CM.DANOTE ---
Patient is an 87 yo male who was admitted on 12/02/22 for Modified Trauma/Fall. Pt has [facility] for insurance and his PCP is Sruthi Kelley. EMR was reviewed. Per Surgeon, pt with 6-12 ft fall on his back from a porch with manubrium fx and shoulder and back pain. Currently no need for surgical intervention. Per RN, pt able to architectural superintendent room for about 10-15 min but became quite nauseous and dizzy with still significant pain in his shoulder. Imaging did not show any injury to pt's back but Surgeon may get additional imaging of pt's shoulder/arm if pain not well managed. SW met bedside with pt and explained role and he confirms he lives in [facility] with his /DPOA and is active and independent at baseline with ADLs and does not use DME for ambulation and still drives. Pt confirms he was working on his gutters at home when the railing broke and he fell backwards. Pt states his spouse is home multimedia specialist and able to provide some physical assist if needed and able to transport him home at d/c. Pt denies any hx of HH or SNF and preference is home when stable. Plan: SW to follow closely for better pain management and likely more imaging to confirm pt safe for d/c home with spouse assist and any further identified discharge planning needs. EMMANUELLE Nava Discharge Planning/Care Management CM Discharge Assessment Start: 12/03/22 13:10 Freq: Status: Active Protocol: Document 12/03/22 13:10 BF (Rec: 12/03/22 13:13 BF [id number]) Discharge Planning Assessment Assigned Work Ticket Distributor EMMANUELLE Holland DPOA/Assigned Designee Name spouse Zaira Contact Information [phone] Advance Directives? Yes Advance Directives on File No History Provided By Patient,Family Member,Medical Record Has Patient been admitted in last 30 No days? Prior Living Arrangements House Household Members spouse Type of transporation used prior to Drives own vehicle admit Independent with ADL's Yes Is patient alert and oriented? Yes Caregiver for Another No Patient/Family Preference Home with Home Health Comment r/o possible HH needs Barriers to Discharge No Discharge Plan Home Community [facility] Home Health Nurse Transportation Arrangement spouse able to provide transport home at d/c Referrals Initiated None needed Additional Comment follow closely to r/o HH RN/PT Whiteboard Updated in Patient Room with Yes name and ext. # of Work Ticket Distributor Review Status In Process Please Provide Date Initial DC 12/03/22 Assessment Was Performed Next Review Type Continued Stay Review
[2022-12-03 16:32] VITALS: BP 146/78; PULSE 68; RESP 17; TEMP 36.2; O2SAT 96
--- NOTE | 2022-12-03 17:07 | P.HP_ITS ---
History of Present Illness History of Present Illness Date Patient Seen: 12/03/22 Chief complaint: Modified Trauma Narrative: Mahendra is an 87-year-old man who presented to the emergency department yesterday after falling about 6 ft off a deck. He hit the back of his head on the ground and he thinks his chin struck his chest. He underwent a full CT scan in the emergency department which demonstrated a fracture of the manubrium with a surrounding hematoma. [facility] Medical History (Updated 12/03/22 @ 17:09 by Diego Clements MD) Hyperlipidemia Hypertension Social History household members: spouse Smoking Status: Never smoker alcohol intake: current Meds Home Medications and Allergies Home Medications Medication Instructions Recorded Confirmed Type duloxetine 60 mg capsule,delayed 60 mg PO DAILY 12/02/22 12/02/22 History release gabapentin 300 mg capsule 300 mg PO 3XD 12/02/22 12/02/22 History rosuvastatin 10 mg tablet 10 mg PO ONCE PM 12/02/22 12/02/22 History Allergies Allergy/AdvReac Type Severity Reaction Status Date / Time lisinopril AdvReac Verified 12/02/22 18:46 Exam Vital Signs (past 8 hours): - 12/03/22 11:50 12/03/22 11:51 12/03/22 12:00 Temperature 97.1 F L Pulse Rate 85 Respiratory Rate 17 Blood Pressure 142/60 H 155/73 H 155/73 H Pulse Oximetry 95 Oxygen Flow Rate 0 12/03/22 16:32 Temperature 97.1 F L Pulse Rate 68 Respiratory Rate 17 Blood Pressure 146/78 H Pulse Oximetry 96 Oxygen Flow Rate 0 Oxygen Delivery Method Room Air Oxygen Flow Rate 0 Const Orientation: alert and awake Chest Other: Tender to palpation in the upper sternal region with no crepitus Resp Effort & Inspection: normal respiratory effort Objective Labs 12/02/22 18:29 12/02/22 18:29 Labs: Laboratory Results - last 24 hr 12/02/22 18:29 WBC 10.1 RBC 5.03 Hgb 15.6 Hct 45.5 MCV 90.4 MCH 30.9 MCHC 34.2 RDW 14.3 Plt Count 167 Neut % (Auto) 74.6 Lymph % (Auto) 15.1 L [place] % (Auto) 9.0 Eos % (Auto) 0.9 L Baso % (Auto) 0.4 Neut # (Auto) 7600 H Lymph # (Auto) 1500 [place] # (Auto) 900 Eos # (Auto) 100 Baso # (Auto) 0 Sodium 141 Potassium 4.0 Chloride 105 Carbon Dioxide 28 BUN 11 Creatinine 0.90 Estimated GFR > 60 BUN/Creatinine Ratio 12.2 Glucose 114 H Calcium 9.7 Total Bilirubin 0.8 AST 45 ALT 40 Alkaline Phosphatase 66 Total Creatine Kinase 53 L Troponin I < 0.012 Total Protein 7.3 Albumin 4.3 Globulin 3.0 Albumin/Globulin Ratio 1.4 Assessment & Plan Assessment and plan (1) Closed fracture of manubrium: Qualifiers: Encounter type: initial encounter Qualified Code(s): S22.21XA - Fracture of manubrium, initial encounter for closed fracture Status: Acute Plan Admit for pain control and telemetry monitoring. Once his pain is under control and he is able ambulate without nausea he able to go. Quality VTE Deep Vein Thrombosis/Pulmonary Embolism Present on Admission: No
[2022-12-03] MEDS: GABAPENTIN 300 MG CAPSULE PO ×2 (17:33→20:12)
[2022-12-03] MEDS: IBUPROFEN 600 MG TABLET PO (18:10)
[2022-12-03] MEDS: SODIUM CHLORIDE 0.9% FLUSH 10 ML IV ×2 (20:12→21:26)
[2022-12-04] VITALS: BP 148/56; PULSE 74; RESP 16; TEMP 36.4; O2SAT 93
[2022-12-04] MEDS: HYDROCODONE/ACET 5/325 TABLET 2 TAB PO ×2 (00:42→06:21)
--- NOTE | 2022-12-04 01:00 | PC.NURSE ---
Addendum entered by Sinai Ogden R.N. 12/04/22 06:23: Patient has slept most of night and states he is having less pain this morning but when lifted right arm still states pain is 8/10 with movement so medicated with vicodin and provided ice pack. Original Note: Patient is alert and oriented. [place] with bilateral hearing aids. Breath sounds CTA w/RA sat of 93%. HRR with elevated BP of 148/56. Having intermittent episodes of nausea but did have a 300cc light green emesis earlier and was medicated with zofran and is currently without nausea. BT hypoactive but states he is passing flatus. Is voiding either with use of urinal or up to bathroom. Is able to reposition but does have some difficulty especially with turning to right side related to pain in right shoulder. Recently medicated with vicodin for complaint of 8/10 right shoulder pain; earlier had also complained of left lower back pain but denied that pain when vicodin given. Ice pack also provided relief of pain. Laceration on posterior head with intact ki. Bilateral foot/hand neuropathy unchanged. Bilateral calf SCD's applied at shift change. Fall risk score is high and bed alarm is activated.
[2022-12-04 06:00] VITALS: BP 156/86; PULSE 67; RESP 16; TEMP 36.1; O2SAT 96
[2022-12-04] MEDS: IBUPROFEN 600 MG TABLET PO ×2 (09:13→16:15)
[2022-12-04] MEDS: GABAPENTIN 300 MG CAPSULE PO ×3 (09:13→20:42)
[2022-12-04] MEDS: DULOXETINE 30 MG CAPSULE 60 MG PO (09:13)
--- NOTE | 2022-12-04 09:18 | DI.RAD.S_ITS ---
PROCEDURE: XR SHOULDER RT MIN 2V INDICATIONS: right shoulder pain after a fall TECHNIQUE: 3 views of the shoulder were acquired. COMPARISON: [facility], CR, XR ELBOW RT MIN 3V, 12/02/2022, 19:57. [facility], CT, CT CHEST ABD PEL W CON, 12/02/2022, 18:34. [facility], CR, XR SHOULDER LT MIN 2V, 03/21/2021, 14:55. FINDINGS: Bones: No fractures or dislocations. Moderate degenerative changes. No suspicious bony lesions. Visualized ribs appear intact. Soft tissues: No suspicious soft tissue calcifications. IMPRESSION: No acute osseous abnormality. Dictated by: Kevin Piper M.D. on 12/04/2022 at 10:45 Approved by: Kevin Piper M.D. on 12/04/2022 at 10:46
--- NOTE | 2022-12-04 09:19 | P.PN_ITS ---
Subjective Subjective Date Patient Seen: 12/04/22 Time Patient Seen: 09:19 Interval history: Maehndra complains primarily of nausea today. He did vomit yesterday. His sternum is not bothering him but he has right shoulder pain. Exam Vital Signs (past 8 hours): - 12/04/22 06:00 Temperature 96.9 F L Pulse Rate 67 Respiratory Rate 16 Blood Pressure 156/86 H Pulse Oximetry 96 Oxygen Flow Rate 0 Oxygen Delivery Method Room Air Oxygen Flow Rate 0 Const Orientation: alert and awake Resp Effort & Inspection: normal respiratory effort Objective Labs 12/02/22 18:29 12/02/22 18:29 [facility] Medical History (Updated 12/03/22 @ 17:09 by Diego Clements MD) Hyperlipidemia Hypertension Social History household members: spouse Smoking Status: Never smoker alcohol intake: current Assessment & Plan Assessment and plan (1) Closed fracture of manubrium: Qualifiers: Encounter type: initial encounter Qualified Code(s): S22.21XA - Fracture of manubrium, initial encounter for closed fracture Status: Acute Plan We will try to transition to more NSAIDs unless narcotics to see if his nausea improves. We will check a right shoulder x-ray to make sure there was no missed injury Quality VTE Deep Vein Thrombosis/Pulmonary Embolism Present on Admission: No
[2022-12-04] MEDS: SODIUM CHLORIDE 0.9% FLUSH 10 ML IV ×2 (09:34→20:44)
[2022-12-04 12:00] VITALS: BP 139/65; PULSE 73; RESP 16; TEMP 36.6; O2SAT 93
--- NOTE | 2022-12-04 15:29 | CM.DPC ---
DCP Cont: Per Surgeon, pt making progress and ordered further imaging on pt's shoulder and results are normal. Per RN, pt has been able to ambulate without nausea today and pain seems better controlled and plan is likely d/c home this evening once Surgeon returns from surgery in the OR currently. No concerns or identified barriers to discharge at this time. Plan: SW to follow for plan of likely discharge home via spouse POV tonight and outpt f/u and any further identified discharge planning needs. EMMANUELLE Nava
[2022-12-04 18:00] VITALS: BP 141/71; PULSE 77; RESP 17; TEMP 36.1; O2SAT 96
[2022-12-04 20:00] VITALS: BP 127/66; PULSE 65; RESP 19; TEMP 36.5; O2SAT 92
[2022-12-05] VITALS: BP 130/65; PULSE 61; RESP 22; TEMP 36.4; O2SAT 94
[2022-12-05] MEDS: ACETAMINOPHEN 325 MG TABLET 650 MG PO ×2 (05:22→15:06)
[2022-12-05 06:00] VITALS: BP 147/67; PULSE 95; RESP 19; TEMP 36.9; O2SAT 95
[2022-12-05] MEDS: DULOXETINE 30 MG CAPSULE 60 MG PO (08:05)
[2022-12-05] MEDS: SODIUM CHLORIDE 0.9% FLUSH 10 ML IV ×2 (08:05→20:53)
[2022-12-05] MEDS: GABAPENTIN 300 MG CAPSULE PO ×3 (08:05→20:52)
[2022-12-05] MEDS: IBUPROFEN 600 MG TABLET PO ×2 (11:03→20:53)
[2022-12-05 12:00] VITALS: BP 130/60; PULSE 90; RESP 17; TEMP 36.6; O2SAT 96
--- NOTE | 2022-12-05 16:12 | PT.IIE ---
Current Diagnoses Hyperlipidemia, unspecified (12/02/22) Fracture of manubrium, initial encounter for closed fracture (12/02/22) Medical History (Last Reviewed 12/02/22 @ 18:34 by Sandy Sutherland DO) Hyperlipidemia Hypertension Physical Therapy Inpatient Evaluation/Re-Eval M1 PT/OT-IP Prior Functional Status Start: 12/05/22 17:12 Freq: NEEDED Status: Active Protocol: Document 12/05/22 17:13 AB (Rec: 12/05/22 17:37 AB [id number]) Medical Review Prior Functional Status Medical History Reviewed Yes Communication Pt is able to communicate all needs. Mobility and Gait Pt reports he ambulates with SPC for long distances due to LBP. Activities of Daily Living and IADL's IND with all ADLs and IADLs at [facility]. Prior Functional Level (Other details) Hx of LBP and bilateral shoulder pain (right>left) Social History Household Members spouse Living Arrangements House Number of Floors (Floors) Two Floors Number of Stairs To Enter/Railing? no MCKAY from garage to back door (ramp) Home Environment Standard Height Toilet,Walk in Shower,Ramp Home Equipment Four Wheel Walker,Straight Cane,Manual Wheelchair,Shower Seat with Backrest Additional Social History Comment Pt reports his room is on second floor (14 steps with left hand rail) but can stay in guest room. is able to assist with basic needs but cannot assist physically. M2 PT-IP Current Condition Start: 12/05/22 17:12 Freq: NEEDED Status: Active Protocol: Document 12/05/22 17:13 AB (Rec: 12/05/22 17:37 AB [id number]) Physical Therapy Current Condition Current Condition Evaluation Date 12/05/22 Treatment Diagnosis sternal fx secondary to fall; functional mobility deficits Onset Date 12/02/22 M3 PT-IP Subjective Start: 12/05/22 17:12 Freq: NEEDED Status: Active Protocol: Document 12/05/22 17:13 AB (Rec: 12/05/22 17:37 AB [id number]) Subjective Physical Therapy Visit Type Type Initial Evaluation Visit Start Time 15:22 Visit Stop Time 16:12 Total Visit Minutes 50 Physical Therapy Visit Comments Patient Comments Pt presents semi supine in bed with at bedside. He is agreeable to PT evaluation. Therapy Pain Assessment Pain When Pain Assessed During Mobility Pain Present Pain Present Pain Reported Location Right Shoulder Intensity 6 Scale Used Numeric (0 - 10) Description Sharp Pain Behaviors Facial Grimacing,Wincing Pain Management Techniques Modification of Treatment,Re- positioning Lower Back Intensity 4 Scale Used Numeric (0 - 10) Pain Behaviors Facial Grimacing,Wincing Pain Management Techniques Modification of Treatment,Re- positioning M4 PT-IP Mobility and Gait Start: 12/05/22 17:12 Freq: NEEDED Status: Active Protocol: Document 12/05/22 17:13 AB (Rec: 12/05/22 17:37 AB [id number]) PT-Bed Mobility Assessment Rolling Type of Rolling Log Rolling Level of Assist Minimal Assistance,1 Person Assistance Supine to Sit Supine to Sit Moderate Assistance,Maximum Assistance,1 Person Assistance Sit to Supine Sit to Supine Moderate Assistance,1 Person Assistance Scooting Scooting to Edge of Bed Moderate Assistance PT-Transfer Assessment Sit to and From Stand Sit to and from Stand Contact Guard Assistance,1 Person Assistance,Use of Upper Extremities Equipment Transfer Assistive Device Gait Belt,Front Wheeled Walker Transfers Transfer Destination Bed,Chair Transfer Technique Stand Step Pivot Transfer Ability Level of Assist Contact Guard Assistance,1 Person Assistance,Use of Upper Extremities Comments Mobility Comments Attempted to perform log rolling due to low back pain and sternal fracture, pt is unable to perform horizontal adduction with RUE, therefore log roll was performed to right side. Pt required Negrita to perform log roll due to LBP . Once in sidelying, the pt required modA to sit at EOB due to weakness and LBP. In sitting the pt had difficulty scooting to edge of bed again due to LBP and UE pain. STS is performed with FWW and CGA, however pt does not bend forward far enough to and has mild-mod retro lean, and also has difficulty maintaining feet flat on ground as toes lift up despite verbal cues. Pt is able to perform stand step pivot transfer to chair with CGA and verbal cues for sequencing. He then ambulated as below. At end of session, pt returned to bed with modA for assistance with LEs while performing log roll on to left side. All needs were met, call light was placed within reach and bed alarm was set. is at bedside. RN was notified of findings. Gait Assessment Gait Gait Assistance Required: Contact Guard Assist Distance (Feet) 15 Assistive Devices Assistive Device Gait Belt,Front Wheeled Walker Gait Deviations General Gait Pattern Decreased Stride Length,Flexed Trunk Factors Limiting Gait Function Factors Limiting Gait Function Decreased Activity Tolerance, Decreased Strength,Pain Comments Gait Comments Pt ambulated 15ft x2 in room with FWW and CGA, and with a seated rest break between bouts of ambulation. Pt demonstrates decreased stride length and mild forward flexed trunk when ambulating. He denies significant increase in pain while ambulating. The pt requires verbal cues for proper use of walker. PT-Balance Assessment Sitting Balance and Reactions Static Sitting Balance Ability Normal Dynamic Sitting Balance Ability Good Standing Balance and Reactions Static Standing Balance Ability Good Dynamic Standing Balance Ability Fair Device Used FWW M5 PT-IP Objective Assessments Start: 12/05/22 17:12 Freq: NEEDED Status: Active Protocol: Document 12/05/22 17:13 AB (Rec: 12/05/22 17:37 AB [id number]) Orientation Orientation/Cognition Level of Alertness Alert Orientation Name,Age,Birthday,Month,Date, Year,Day of Week,Place, Situation Language Function Ability No Deficits Noted Safety Awareness Understands Safety Issues Memory Description No Deficits Noted Gross Range of Motion Upper Extremity ROM Assessment Bilaterally Impaired Impairments RUE worse than LUE Lower Extremity ROM Assessment Within Functional Limits Strength Upper Extremity Strength Assessment Bilaterally Impaired Lower Extremity Strength Assessment Within Functional Limits M6 PT-IP Treatment Start: 12/05/22 17:12 Freq: NEEDED Status: Active Protocol: Document 12/05/22 17:13 AB (Rec: 12/05/22 17:37 AB [id number]) Physical Therapy Treatment Education Education Provided Safety Brace Education Patient,Caregiver M7 PT-IP Assessment and Plan Start: 12/05/22 17:12 Freq: NEEDED Status: Active Protocol: Document 12/05/22 17:13 AB (Rec: 12/05/22 17:37 AB [id number]) PT Summary Assessment and Plan Potential Rehabilitation Potential Good Status of Condition at Evaluation Stable Summary Impairments Pain,ROM,Strength,Balance,Bed Mobility,Transfers,Gait, Activity Tolerance Assessment Summary Mariano Buenrostro is an 87 year old male patient presenting with functional mobility deficits, after suffering a five foot fall from a deck which caused a sternal fracture. The pt currently demonstrates muscular weakness , ROM deficits and pain symptoms which are limiting his ability to perform functional mobility independently. He currently requires mod-maxA for bed mobility, and CGA for STS, transfers and short ambulation distances, along with a FWW for these. He demonstrates an unsafe technique when performing STS and transfers which can lead to a fall. Based on his current level of function, PT recommends discharge to SNF in order to improve to his PLOF. The pt would benefit from skilled PT during his hospitalization to improve to his highest level of function. Goals Bed Mobility Goal Standby Assistance Transfer Goal Standby Assistance,Front Wheeled Walker Gait Goal Standby Assistance,Cane,Front Wheel Walker Gait Distance 50 Other Goals Pt to be able to ambulate 50ft with SBA and LRAD to demonstrate ability to ambulate household distances. Pt to be able to ambulate 200ft with SBA and LRAD to demonstrate ability to ambulate community distances. Days to Meet Goals 10 Frequency of Treatment Frequency Of Treatment Once a Day Treatment Plan Physical Therapy Treatment Plan Bed Mobility Training,Transfer Training,Gait Training, Therapeutic Exercise,Balance Retraining,Discharge Planning, Hot or Cold Pack,Neuromuscular Re-ed,Coordination Retraining ,Manual Therapy Other Recommendations and Next Treatment STS/transfer training, bed Focus mobility/log roll technique Recommendations To Nursing Amount of Assist Needed 1 Person Assist Discharge Recommendations PT Discharge Recommendations SNF Rehab Equipment Needed for Home Before FWW Discharge Transportation Needs at Discharge Private Vehicle,Wheelchair/ Cabulance
[2022-12-05 18:31] VITALS: BP 130/88; PULSE 90; RESP 17; TEMP 37.2; O2SAT 97
--- NOTE | 2022-12-05 18:55 | PM.PN.1 ---
Subjective Subjective Date Patient Seen: 12/05/22 Time Patient Seen: 18:55 Interval history: Mahendra worked with PT today. He had quite a bit of trouble moving around and was exhausted afterwards. Complains of back pain. Exam Vital Signs (past 8 hours): - 12/05/22 12:00 12/05/22 18:31 Temperature 98 F 99 F Pulse Rate 90 90 Respiratory Rate 17 17 Blood Pressure 130/60 130/88 Pulse Oximetry 96 97 Oxygen Flow Rate 0 0 Oxygen Delivery Method Room Air Oxygen Flow Rate 0 Const General: No acute distress Other: Abdomen soft Objective Labs 12/02/22 18:29 12/02/22 18:29 [facility] Medical History (Updated 12/03/22 @ 17:09 by Diego Clements MD) Hyperlipidemia Hypertension Social History household members: spouse Smoking Status: Never smoker alcohol intake: current Assessment & Plan Assessment and plan (1) Closed fracture of manubrium: Qualifiers: Encounter type: initial encounter Qualified Code(s): S22.21XA - Fracture of manubrium, initial encounter for closed fracture Status: Acute Plan Will involve case managment to work on placment. Quality VTE Deep Vein Thrombosis/Pulmonary Embolism Present on Admission: No
[2022-12-06] VITALS: BP 158/71; PULSE 77; RESP 18; TEMP 36.8; O2SAT 93
[2022-12-06 06:00] VITALS: BP 168/72; PULSE 74; RESP 20; TEMP 35.9; O2SAT 94
[2022-12-06] MEDS: ACETAMINOPHEN 325 MG TABLET 650 MG PO (08:52)
[2022-12-06] MEDS: GABAPENTIN 300 MG CAPSULE PO ×3 (08:53→22:17)
[2022-12-06] MEDS: DULOXETINE 30 MG CAPSULE 60 MG PO (08:53)
--- NOTE | 2022-12-06 09:04 | CM.DPC ---
Addendum entered by Amie Cruz R.N. 12/06/22 12:45: Called over at [facility] cell number, Dr. Peres answered. Let him know that [facility] can accept tomorrow, with lease picker at 10:30, will need orders in the am, he is not sure if he is on tomorrow, but will let surgery know. Addendum entered by Amie Cruz R.N. 12/06/22 12:34: Kathy at [facility] called, has received the auth, confirmed lease picker time of 1030 on . Addendum entered by Amie Cruz R.N. 12/06/22 11:15: Confirmed with Kathy at [facility] that she has submitted auth, stated, she may have the auth by this afternoon. Went ahead and set up lease picker time for tomorrow at 10:30, will just need to get orders from surgeon. Updated patient and spouse, gave her the Medicare List, and address of facility. Wrote this on the board in patient's room as well, updated nurse, Doris, to see if she can update Dr. Gomez when he comes in, or if she can let this DC Upfitter know. Addendum entered by Amie Cruz R.N. 12/06/22 10:22: Lily at [facility] stated not in network with insurance. PAULETTE Huang litigation legal assistant, will fax over referral to Kathy at [facility], they have beds, and accept [employer]. Original Note: DCP Cont: Patient did not discharge last pm, noticed note from the surgeon indicating that case management would work on skilled for patient. He has worked with P.T. Checked in with patient. Patient indicated, 'my and I are in our 80s, she's not sure that she can take care of me at home. Reminded him that he is currently under OBS, unclear as to how long his insurance would cover him being here, but let him know that this DC Upfitter can attempt skilled. He is OPT[facility], patient does not care which facility. Let him also know that there is a chance that his insurance may not cover halfway, last P.T. note was one assist. Called July over at [facility] to see if she accepts his insurance. She is currently checking on this, they recently received a contract through [facility]. She will get back to this DC Upfitter. Checked in with Kathy at [facility], also accepts OPT[facility], and have beds. She indicated, it does not usually take that long to get the auth, and they are usually pretty lenient. P: DCP working on getting patient to a skilled facility, [facility] will call back if they can accept, otherwise, will send over to [facility]. He will also work with Ishan Cruz RN/Infant Caregiver
[2022-12-06 09:25] VITALS: BP 156/66; PULSE 58; RESP 18; TEMP 36.3; O2SAT 96
--- NOTE | 2022-12-06 11:35 | PT.IPTN ---
Current Diagnoses Hyperlipidemia, unspecified (12/02/22) Fracture of manubrium, initial encounter for closed fracture (12/02/22) Physical Therapy Treatment Note M2 PT-IP Current Condition Start: 12/05/22 17:12 Freq: NEEDED Status: Active Protocol: Document 12/05/22 17:13 AB (Rec: 12/05/22 17:37 AB [id number]) Physical Therapy Current Condition Current Condition Evaluation Date 12/05/22 Treatment Diagnosis sternal fx secondary to fall; functional mobility deficits Onset Date 12/02/22 M3 PT-IP Subjective Start: 12/05/22 17:12 Freq: NEEDED Status: Active Protocol: Document 12/06/22 11:35 AB(2) (Rec: 12/06/22 12:27 AB(2) [id number]) Subjective Physical Therapy Visit Type Type Treatment Note Visit Start Time 11:35 Visit Stop Time 12:07 Total Visit Minutes 32 Number of APPOINTMENT SCHEDULER Visits 0 Physical Therapy Visit Comments Patient Comments agreeable to do PT Therapy Pain Assessment Pain When Pain Assessed During Mobility Pain Present Pain Present Pain Reported Location Lower Back Scale Used pain scale not stated Pain Behaviors Guarding,Wincing Pain Management Techniques Apply Cold,Distraction, Modification of Treatment,Re- positioning,Timing of Activity with Medications M4 PT-IP Mobility and Gait Start: 12/05/22 17:12 Freq: NEEDED Status: Active Protocol: Document 12/06/22 11:35 AB(2) (Rec: 12/06/22 12:27 AB(2) [id number]) PT-Bed Mobility Assessment Rolling Type of Rolling Log Rolling Level of Assist Maximal Assistance Supine to Sit Supine to Sit Maximum Assistance PT-Transfer Assessment Sit to and From Stand Sit to and from Stand Minimal Assistance,Moderate Assistance,1 Person Assistance ,Use of Upper Extremities Equipment Transfer Assistive Device Gait Belt,Front Wheeled Walker Orthotic/Prosthetic Devices or Brace: No Transfers Transfer Destination Chair Transfer Technique ambulated Transfer Ability Level of Assist Minimal Assistance,Moderate Assistance,1 Person Assistance ,Use of Upper Extremities Comments Mobility Comments pt supine in bed. spouse in room. pt agreed to do PT. completed log roll supine to sit max A and max cues. min A for sitting balance with initial sitting with increase posterior trunk lean and c/o increase low back pain. positioned pt on EOB and able to maintain sitting balance SBA and cues for posture after repositioning. completed sit to stand min A and max cues for EOB. presented with increase posterior trunk lean needing min A for standing balance for initial standing. cued for posture and correcting body position with increasing awareness of COG. pt ambulated ~ 30 ft and requested to use the toilet using FWW min to mod A. required mod A during turning with LOB and slight R knee buckling but with recovery. assisted pt with toileting needs. sit to stand from the toilet mod A and max cues using grab bar and ambulated towards the sink min to mod A and cues using FWW. able to maintain standing balance min A while completing handwashing . pt agreed to ambulate more and completed ~ 60 ft in room using FWW min to mod A. cues for upright posture and slowing down. pt agreed to sit up on the chair. positioned on the chair. call light and table placed within reach. Gait Assessment Gait Gait Assistance Required: Minimum Assistance,Moderate Assistance Distance (Feet) 60 Able to Maintain Weight Bearing Status Yes During Gait Assistive Devices Assistive Device Gait Belt,Front Wheeled Walker Orthotic/Prosthetic Devices or Brace: No Gait Deviations General Gait Pattern Antalgic,Decreased Stride Length,Decreased Feet Clearance Factors Limiting Gait Function Factors Limiting Gait Function Decreased Activity Tolerance, Decreased Strength,Limited Range of Motion,Pain,Poor Balance,Poor Safety Awareness M5 PT-IP Objective Assessments Start: 12/05/22 17:12 Freq: NEEDED Status: Active Protocol: Document 12/05/22 17:13 AB (Rec: 12/05/22 17:37 AB [id number]) Orientation Orientation/Cognition Level of Alertness Alert Orientation Name,Age,Birthday,Month,Date, Year,Day of Week,Place, Situation Language Function Ability No Deficits Noted Safety Awareness Understands Safety Issues Memory Description No Deficits Noted Gross Range of Motion Upper Extremity ROM Assessment Bilaterally Impaired Impairments RUE worse than LUE Lower Extremity ROM Assessment Within Functional Limits Strength Upper Extremity Strength Assessment Bilaterally Impaired Lower Extremity Strength Assessment Within Functional Limits M6 PT-IP Treatment Start: 12/05/22 17:12 Freq: NEEDED Status: Active Protocol: Document 12/06/22 11:35 AB(2) (Rec: 12/06/22 12:27 AB(2) [id number]) Physical Therapy Treatment Education Education Provided Safety M7 PT-IP Assessment and Plan Start: 12/05/22 17:12 Freq: NEEDED Status: Active Protocol: Document 12/06/22 11:35 AB(2) (Rec: 12/06/22 12:27 AB(2) [id number]) PT Summary Assessment and Plan Potential Rehabilitation Potential Fair Summary Impairments Pain,ROM,Strength,Balance, Coordination,Sensation,Tone, Cognition,Bed Mobility, Transfers,Gait,Activity Tolerance Progress Towards Goals Slow Progress due to Pain,Slow Progress due to Medical Issues Assessment Summary pt progressing slowly with mobility. pt continues to require max A for bed mobility , requires min A to mod A with ambulation using FWW with increase unsteadiness during turning. pt continues to c/o low back pain and R shoulder pain affecting mobility and activity tolerance. pt will benefit from SNF rehab to improve overall strength and mobility independence. Goals Bed Mobility Goal Standby Assistance Transfer Goal Standby Assistance,Front Wheeled Walker Gait Goal Standby Assistance,Cane,Front Wheel Walker Gait Distance 100 Other Goals Pt to be able to ambulate 50ft with SBA and LRAD to demonstrate ability to ambulate household distances. Pt to be able to ambulate 200ft with SBA and LRAD to demonstrate ability to ambulate community distances. Days to Meet Goals 10 Frequency of Treatment Frequency Of Treatment Once a Day Treatment Plan Physical Therapy Treatment Plan Bed Mobility Training,Transfer Training,Gait Training, Therapeutic Exercise,Balance Retraining,Discharge Planning, Hot or Cold Pack,Neuromuscular Re-ed,Coordination Retraining ,Manual Therapy Recommendations To Nursing Amount of Assist Needed 1 Person Assist Discharge Recommendations PT Discharge Recommendations SNF Rehab Transportation Needs at Discharge Private Vehicle,Wheelchair/ Cabulance
[2022-12-06 12:00] VITALS: BP 137/61; PULSE 52; RESP 18; TEMP 36.2; O2SAT 96
--- NOTE | 2022-12-06 13:33 | OT.IP.EVAL ---
Current Diagnoses Hyperlipidemia, unspecified (12/02/22) Fracture of manubrium, initial encounter for closed fracture (12/02/22) Past Medical History (Last Reviewed 12/02/22 @ 18:34 by Sandy Sutherland DO) Hyperlipidemia Hypertension Occupational Therapy Inpatient Evaluation/Re-Eval M1 PT/OT-IP Prior Functional Status Start: 12/05/22 17:12 Freq: NEEDED Status: Active Protocol: Document 12/05/22 17:13 AB (Rec: 12/05/22 17:37 AB [id number]) Medical Review Prior Functional Status Medical History Reviewed Yes Communication Pt is able to communicate all needs. Mobility and Gait Pt reports he ambulates with SPC for long distances due to LBP. Activities of Daily Living and IADL's IND with all ADLs and IADLs at PLOF. Prior Functional Level (Other details) Hx of LBP and bilateral shoulder pain (right>left) Social History Household Members spouse Living Arrangements House Number of Floors (Floors) Two Floors Number of Stairs To Enter/Railing? no MCKAY from garage to back door (ramp) Home Environment Standard Height Toilet,Walk in Shower,Ramp Home Equipment Four Wheel Walker,Straight Cane,Manual Wheelchair,Shower Seat with Backrest Additional Social History Comment Pt reports his room is on second floor (14 steps with left hand rail) but can stay in guest room. is able to assist with basic needs but cannot assist physically. M1 PT/OT-IP Prior Functional Status Start: 12/06/22 13:34 Freq: NEEDED Status: Active Protocol: Document 12/06/22 13:00 [facility] (Rec: 12/06/22 13:58 [facility] [id number]) Medical Review Prior Functional Status Medical History Reviewed Yes Communication Pt is able to communicate all needs. Mobility and Gait Pt reports he ambulates with SPC for long distances due to LBP. Activities of Daily Living and IADL's IND with all ADLs and IADLs at PLOF. Pt states drives. Prior Functional Level (Other details) Hx of LBP and bilateral shoulder pain (right>left), rotator cuff injuries. Social History Household Members spouse Living Arrangements House Number of Floors (Floors) Two Floors Number of Stairs To Enter/Railing? no MCKAY from garage to back door (ramp) Home Environment Standard Height Toilet,Walk in Shower,Ramp Home Equipment Four Wheel Walker,Straight Cane,Manual Wheelchair,Shower Seat with Backrest,Hand Held Shower,Long Handled Shoe Horn Additional Social History Comment Pt reports his room is on second floor (14 steps with left hand rail) but can stay in guest room. is able to assist with basic needs but cannot assist physically. M2 OT-IP Current Condition Start: 12/06/22 13:34 Freq: Status: Active Protocol: Document 12/06/22 13:00 [facility] (Rec: 12/06/22 13:58 [facility] [id number]) Occupational Therapy Current Condition Current Condition Evaluation Date 12/06/22 Treatment Diagnosis S/P fall, fractured manubrium, weakness Post Operative Precautions Other Precautions Pt has low back pain and therefore to follow log rolling for bed mobility needs and limit twisting and lifting at this time. M3 OT- IP Subjective and Pain Start: 12/06/22 13:34 Freq: Status: Active Protocol: Document 12/06/22 13:00 [facility] (Rec: 12/06/22 13:58 [facility] [id number]) OT- Subjective Occupational Therapy Visit Type Type Initial Evaluation Visit Start Time 13:00 Visit Stop Time 13:33 Total Visit Minutes 33 Occupational Therapy Visit Comments Patient Comments Pt wanting to get back to bed. Patient/Caregiver Goals TO go to rehab to get stronger and get back to taking care fo himself. OT Pain Assessment Pain When Pain Assessed At Rest Pain Present Pain Present Pain Reported Location Lower Back Intensity 3 Scale Used Numeric (0 - 10) M4 OT- IP ADL's Start: 12/06/22 13:34 Freq: Status: Active Protocol: Document 12/06/22 13:00 [facility] (Rec: 12/06/22 13:58 [facility] [id number]) OT AFM-Llfs-Tczgoik Comments OT Self-Feeding Comments Assist with set-up due to limited ROm and pain. OT ADL-Grooming Comments OT Grooming Comments NOt performed. OT ADL-Oral Care Comments Oral Care Comments NOt performed. OT ADL-Dressing General Eval Lower Body Dressing Ability Maximum Assistance Areas Needing Assistance Socks Comments OT Dressing Comments Initiated education of LB dressing equipment in order to increase ease and independence for ADL needs. OT ADL-Toileting General Evaluation Areas Needing Assistance Manage Clothing,Perform Perineal Hygiene Comments OT Toileting Comments At this time due to limited AROM for BUE, pt will need assist for hygiene and brief management needs. Able to show pt toilet paper aid and suggested that a toilet bidet would also be helpful to get versus getting assist from his . OT ADL-Bathing Comments OT Bathing Comments Pt states showered this morning with his and nursing aid assisting him. M5 OT- IP IADL's Start: 12/06/22 13:34 Freq: Status: Active Protocol: Document 12/06/22 13:00 [facility] (Rec: 12/06/22 13:58 [facility] [id number]) OT-Instrumental Activities of Daily Living Deficits IADL Deficits Identified Deficits Home Safety Awareness Awareness of Need for Assistance at Home Good Awareness Ability to Problem Solve Emergency Able to Problem Solve Situations Medication Management Medication Management Comments Pt used a pill box prior. Money Management Money Management Comments Pt did automatic payment for most of his bills. Meal Preparation Meal Preparation Caregiver Provides Assist Dry Color Mixer Dry Color Mixer Caregiver Provides Assist Driving Driving Concerns Identified Regarding Safety Driving Comments Concerns to drive due to lack of BUE AROM and back pain. M6 OT- IP Functional Cognition Start: 12/06/22 13:34 Freq: Status: Active Protocol: Document 12/06/22 13:00 [facility] (Rec: 12/06/22 13:58 [facility] [id number]) Cognitive Factors Limiting Selfcare Function Cognitive Ability Level of Alertness Alert Patient Orientation Name,Age,Birthday,Place, Situation Attention Span Ability Capable of Focused Attention, Capable of Sustained Attention Ability to Follow Commands Able to Follow Multi-Step Commands Cognitive Comments Cognitive Assessment Comments Pt able to follow commands well. Pt scored 117 seconds for [place] Making Part B implies mild to moderate impairments for visual attention, speed of processing , mental flexibility, executive functioning, and task switching, However due to pt' s pain and increased time to move his RUE, his time is most likely faster than 117seconds . Pt's current score is at 50th percentile for his age. OT- Vision and Hearing OT- Hearing Assessment OT- Hearing Assessment Use of Hearing Aids OT- Vision Assessment Visual Acuity Glasses For Reading Visual Attentiveness WFL M7 OT- IP Mobility and Balance Start: 12/06/22 13:34 Freq: Status: Active Protocol: Document 12/06/22 13:00 [facility] (Rec: 12/06/22 13:58 [facility] [id number]) OT- Bed Mobility Assessment Sit to Supine Sit to Supine Assist Moderate Assistance OT-Transfer Assessment Sit to and From Stand Sit to and from Stand Minimal Assistance Transfers Transfer Ability Minimal Assistance Technique Transfer Destination Bed,Chair Devices Transfer Assistive Devices Gait Belt,Front Wheeled Walker Comments Mobility Comments GENO to stand and heavy use of his BUE on the FWW to transfer to the bed. MODA to assist to help get his legs back into bed. OT- Balance Assessment Sitting Balance and Reactions Static Sitting Balance Ability Good Dynamic Sitting Balance Ability Fair Standing Balance and Reactions Static Standing Balance Ability Fair Dynamic Standing Balance Ability Fair M8 OT- IP Objective Assessments Start: 12/06/22 13:34 Freq: Status: Active Protocol: Document 12/06/22 13:00 [facility] (Rec: 12/06/22 13:58 [facility] [id number]) OT Gross Range of Motion Upper Extremity Range of Motion Assessment Bilaterally Impaired ROM Impairments RUE unable to lift above gravity due to pain. OT Strength Comments Strength Comments NT due to back pain. M9 OT- IP Assessment and Plan Start: 12/06/22 13:34 Freq: Status: Active Protocol: Document 12/06/22 13:00 [facility] (Rec: 12/06/22 13:58 [facility] [id number]) OT Summary Assessment and Plan Potential Rehabilitation Potential Good Analytic Complexity at Evaluation Moderate Summary OT Impairments Pain,Range of Motion,Strength, Balance,Functional Mobility, Self-Feeding,Grooming,Dressing ,Toileting,Bathing,Toilet Transfers,Shower Transfers, Activity Tolerance Progress Towards Goals Slow Progress due to Pain,Slow Progress due to Activity Tolerance Assessment Summary Pt MOD complexity and main barrier are pain, decreased AROM with BUE, and now needing extensive assist for ADL needs. Able to initiate use of LB dressing equipment for pt . Pt looking to go to skilled rehab when medically stable. Goals Self-Feeding Goal Independent Grooming Goal Independent Dressing Goal Independent,Long Handled Shoe Horn,Coremaker Bench,Sock Aid Toileting Goal Independent,Toilet Paper Aid, Urinal Bathing Goal Standby Assistance Toilet Transfer Goal Independent Shower Transfer Goal Independent Days to Meet Goals 25 Frequency of Treatment Frequency Of Treatment Once a Day Treatment Plan OT Treatment Plan ADL Training,Functional Mobility,Patient/Family Education,Discharge Planning Discharge Recommendations OT Discharge Recommendations SNF Rehab Transportation Needs at Discharge Wheelchair/Cabulance
[2022-12-06 16:30] VITALS: BP 143/64; PULSE 51; RESP 18; TEMP 36.2; O2SAT 95
[2022-12-06] MEDS: HYDROCODONE/ACET 5/325 TABLET 1 TAB PO (16:33)
[2022-12-06] MEDS: SODIUM CHLORIDE 0.9% FLUSH 10 ML IV (22:17)
[2022-12-06] MEDS: IBUPROFEN 600 MG TABLET PO (22:18)
[2022-12-07 01:00] VITALS: BP 159/76; PULSE 70; RESP 20; TEMP 36.6; O2SAT 96
[2022-12-07 05:31] VITALS: BP 159/72; PULSE 71; RESP 20; TEMP 35.6; O2SAT 97
--- NOTE | 2022-12-07 08:49 | PM.DS.1 ---
History of Present Illness History of Present Illness Date Patient Seen: 12/07/22 Chief complaint: Modified Trauma Narrative: 87M sp fall with an acute mildly displaced transverse fracture of the manubrium and associated small hematoma. Discharge Providers Provider Date of admission: 12/02/22 19:41 Discharge Date: 12/07/22 Primary care physician: Sruthi Kelley PA-C Consults: 12/05/22 12:46 Consult to Physical Therapy Evaluate & Treat Comment: Physician Instructions: Evaluate and Treat 12/05/22 19:02 Consult to Discharge Planning Routine Comment: P.T. rec SNF, requesting 12/06/22 10:33 Consult to Occupational Therapy Evaluate & Treat Comment: Physician Instructions: Evaluate and treat Discharge provider: Rubén Peres MD Summary Hospital Course Discharge Diagnosis: Fracture of the manubrium Hospital Course: 87M sp ground level fall with acute fracture of the manubrium. Admitted for pain control, no additional injuries identified. Recommendation for SNF at discharge. Exam Vital Signs (past 8 hours): - 12/07/22 01:00 12/07/22 05:31 Temperature 97.9 F 96.1 F L Pulse Rate 70 71 Respiratory Rate 20 20 Blood Pressure 159/76 H 159/72 H Pulse Oximetry 96 97 Oxygen Flow Rate 0 0 Oxygen Delivery Method Room Air Oxygen Flow Rate 0 Objective Labs 12/02/22 18:29 12/02/22 18:29 [facility] Medical History (Updated 12/03/22 @ 17:09 by Diego Clements MD) Hyperlipidemia Hypertension Social History household members: spouse Smoking Status: Never smoker alcohol intake: current Discharge Plan Discharge Plan Patient Disposition: SNF Transfer to: [facility], [facility] Andrew Stout certify the postop hospital custodial care is medically necessary on a continuing basis for any conditions for which he/ she received care during this hospitalization.: Yes The receiving facility has agreed to accept transfer and provide medical treatment.: Yes Discharge orders & Medications Prescriptions: New acetaminophen 325 mg Tablet 650 mg PO Q6HR PRN (Reason: Fever/Mild Pain (1-3)) Qty: 40 0RF gabapentin 300 mg Capsule 300 mg PO TID Qty: 30 0RF duloxetine [Cymbalta] 30 mg Capsule,Delayed Release(Dr/Ec) 60 mg PO DAILY Qty: 30 0RF Continued gabapentin 300 mg capsule 300 mg PO 3XD rosuvastatin 10 mg tablet 10 mg PO ONCE PM duloxetine 60 mg capsule,delayed release(DR/EC) 60 mg PO DAILY Follow up/Referrals: Sruthi Kelley, KEYANNA [Primary Care Provider] - Diet/Activity/Treatments Diet: Diet as Tolerated Skin/Wound/Dressing Care Report to your healthcare provider any signs of infection, such as:: chills, fever, increased pain, unusual drainage and unusual redness Visit Report/Discharge Packet Stand Alone Forms: Patient Portal/API, Stroke Signs & Symptoms Discharge Data Primary Care Provider: Sruthi Kelley Attending Provider: Diego Clements Admit Date/Time: 12/02/22 19:41 Quality VTE Deep Vein Thrombosis/Pulmonary Embolism Present on Admission: No
[2022-12-07] MEDS: GABAPENTIN 300 MG CAPSULE PO (09:14)
[2022-12-07] MEDS: DULOXETINE 30 MG CAPSULE 60 MG PO (09:14)
[2022-12-07] MEDS: HYDROCODONE/ACET 5/325 TABLET 1 TAB PO ×2 (09:15→10:14)
--- NOTE | 2022-12-07 10:11 | CM.DPNOTE ---
DC Note Discharge order placed by Dr Peres; discharge to [facility] via cabulance picking table worker at 1030. Patient updated and remains agreeable to plan. KYLIE Huang, sending completed DC ppk to Kathy at [facility]. CATHY Singh updated and will call nurse report. Plan: Discharge to [facility], [facility] auth in place, transport via cabulance picking table worker at 1030 JW
--- NOTE | 2022-12-07 12:07 | PC.NURSE ---
Pt is sleeping upon initial assessment. He awakens easily and is able to tolerate breakfast well. He is able to ambulate with FWW to void without difficulty. He complains of back, neck and shoulder pain. Appears to be managed well with prn [place]. Plan for patient to discharge today to [facility] of . He verbalizes agreement and understanding of plan. MD Peres notified for discharge medications and orders. Report called to Nel at [facility] of . Cabulance arrived and transported patient and discharge packet via w/ch at 1050a.m. at bedside transporting belongings.
== END 2022-12-07 10:53 ==
LOC: ED 19:11 → AC 19:42
PROVIDERS: Admitting Provider Surgery; Emergency Provider Emergency Medicine; Family Provider Internal Medicine; PCP Student in an Organized Health Care Education/Training Program; Visit Provider Surgery
DX: S22.21XA Fracture of manubrium, initial encounter for closed fracture (principal); S01.01XA Laceration without foreign body of scalp, initial encounter; M54.6 Pain in thoracic spine; W18.09XA Striking against other object with subsequent fall, initial encounter; Y92.008 Other place in unspecified non-institutional (private) residence as the place of occurrence of the external cause; E78.5 Hyperlipidemia, unspecified
CPT/HCPCS: 12002; 36415; 70450; 71260; 72125; 73030; 73080; 74177; 80053; 82550; 84484; 85025; 93005; 96374; 96375; 96376; 97116; 97162; 97166; 97530; 97535; 99221; 99231; 99238; 99285; G0378; J1170; J2270; J2405; Q9967

== ENCOUNTER 2023-01-10 19:28 | Emergency (ER) | payer MEDICARE, OTHER, SELFPAY ==
[2022-12-02 21:04] VITALS: BMI 31.9
[2023-01-10 19:36] VITALS: BP 185/97; PULSE 70; RESP 16; TEMP 36.4; O2SAT 96; BMI 69.2
--- NOTE | 2023-01-10 19:48 | DI.CT.S_ITS ---
PROCEDURE: CT KIDNEY URETER BLADDER (KUB) INDICATIONS: flank pain, vomiting TECHNIQUE: Axial sections were acquired from the lung bases to the pubic symphysis. Coronal and sagittal reformats were performed. For radiation dose reduction, the following was used: automated exposure control, adjustment of mA and/or kV according to patient size. COMPARISON: [facility], CT, CT CHEST ABD PEL W CON, 12/02/2022, 18:34. FINDINGS: Image quality: Excellent. Lung bases: Unremarkable. Heart: No significant findings. URINARY: Right Kidney: Moderate hydronephrosis and perinephric fat stranding. Right Ureter: Obstructing 3.5 mm stone in the proximal right ureter. Left Kidney: No stones or hydronephrosis. Left Ureter: No hydroureter. Bladder: Normal wall thickness. No stones. ABDOMEN: Liver: Unremarkable. Gallbladder: Unremarkable. Biliary ducts: Unremarkable. Pancreas: Unremarkable. Spleen: Unremarkable. Adrenal Glands: Unremarkable. Stomach and Bowel: Colonic diverticulosis without evidence of diverticulitis. Peritoneum: No abnormal intraperitoneal fluid. No free air. Ventral Wall: No hernia. Abdominal Nodes: No enlarged retroperitoneal or mesenteric lymph nodes. Vessels: Aorta and inferior vena cava are normal in size. PELVIS: Pelvic Organs: Unremarkable. Pelvic Nodes: Unremarkable. Miscellaneous: Trace fat within the left inguinal canal. Bones: Subacute compression deformities of the superior endplates T12 and L1, without endplate retropulsion. IMPRESSION: Obstructing 3.5 mm stone in the proximal right ureter, resulting in moderate hydronephrosis and perinephric fat stranding. New compression deformity of the T12 and L1 vertebral bodies compared with 12/02/2022. No endplate retropulsion. Correlate with recent history of trauma. Dictated by: Gary Bal M.D. on 01/10/2023 at 20:18 Approved by: Gary Bal M.D. on 01/10/2023 at 20:22
[2023-01-10 20:37] LABS: Add Manual Diff / Slide Review NO; Alanine Aminotransferase 25 IU/L (<50); Albumin 4.7 g/dL (3.5-5.0); Albumin Globulin Ratio 1.5 (1.0-2.8); Alkaline Phosphatase 123 U/L (38-126); Aspartate Aminotransferase 27 IU/L (17-59); BUN Creatinine Ratio 20.7 (6-22); Basophils Absolute Auto 100 /uL (0-100); Basophils Percent Auto 0.6 % (0-2); Bilirubin Total 1.5 mg/dL (0.2-1.3); Blood Urea Nitrogen 18 mg/dL (9-20); Calcium 10.2 mg/dL (8.4-10.2); Carbon Dioxide 25 mmol/L (22-32); Chloride 101 mmol/L (98-107); Eosinophils Absolute Auto 200 /uL (0-450); Eosinophils Percent Auto 1.1 % (2-4); Estimated Glomerular Filt Rate > 60 mL/min (>60); Globulin 3.2 g/dL (1.7-4.1); Glucose 116 mg/dL (80-110); HEMOLYSIS 33 (0-50); Hematocrit 47.4 % (41-53); Hemoglobin 15.8 g/dL (13.5-17.5); Lipase 84 U/L (23-300); Lymphocytes Absolute Auto 1600 /uL (1100-4500); Lymphocytes Percent Auto 8.6 % (25-40); Mean Corpuscular HGB Conc 33.3 % (30-36); Mean Corpuscular Hemoglobin 29.9 PG (26-34); Mean Corpuscular Volume 89.9 fL (80-100); Monocytes Absolute Auto 1500 /uL (0-900); Neutrophils Absolute Auto 14900 /uL (1500-7000); Neutrophils Percent Auto 81.7 % (50-75); Platelet Count 251 X10^3/uL (150-400); Potassium 4.3 mmol/L (3.4-5.1); Red Blood Cell Count 5.27 X10^6/uL (4.5-5.9); Red Cell Distribution Width 14.2 % (11.6-14.8); Sodium 136 mmol/L (137-145); Total Protein 7.9 g/dL (6.3-8.2); White Blood Cell Count 18.2 X10^3/uL (4.5-11.0)
[2023-01-10] MEDS: ONDANSETRON 4 MG/2 ML INJ IV (20:40)
[2023-01-10] MEDS: KETOROLAC 30 MG/ML VIAL 15 MG IV (20:40)
[2023-01-10 22:23] VITALS: PULSE 59; O2SAT 94
[2023-01-10 22:24] VITALS: BP 160/77; PULSE 58; O2SAT 94
[2023-01-10 22:30] VITALS: BP 160/78; PULSE 74; RESP 18; O2SAT 94
[2023-01-10 23:00] VITALS: BP 171/85; PULSE 69; RESP 18; O2SAT 93
--- NOTE | 2023-01-10 23:58 | ED_ITS ---
HPI - Abdominal Pain General Chief Complaint: Abdominal Pain Stated Complaint: kidney issues Time Seen by Provider: 01/10/23 19:48 Source: patient, family, RN notes reviewed and old records reviewed Mode of arrival: Ambulatory History of Present Illness HPI narrative: 87-year-old male with history of dyslipidemia, hypertension, manubrium fracture in November 2022. Patient had complaint of sudden onset right flank pain this evening had seen in the bladder symptoms couple nights ago although not quite as intense. Patient states no radiation to the front. No fevers or chills. No cold cough or congestion. Patient has had some chronic pain in his chest which has been improving over time after his manubrium fracture in November. No shortness of breath. Patient had some nausea and vomiting this evening. He is had normal bowel movements, no dysuria urgency or frequency they have not appreciated any hematuria. Patient does not have any reported history of kidney stones. Allergic to lisinopril. No tobacco, occasional alcohol, no illicit. He is accompanied by his who augments majority of his history. Related Data Home Medications Medication Instructions Recorded Confirmed duloxetine 60 mg capsule,delayed 60 mg PO DAILY 12/02/22 12/02/22 release gabapentin 300 mg capsule 300 mg PO 3XD 12/02/22 12/02/22 rosuvastatin 10 mg tablet 10 mg PO ONCE PM 12/02/22 12/02/22 Previous Rx's Medication Instructions Recorded acetaminophen 325 mg tablet 650 mg (2 x 325 mg) PO Q6HR PRN 12/07/22 Fever/Mild Pain (1-3) #40 tabs duloxetine 30 mg capsule,delayed 60 mg (2 x 30 mg) PO DAILY #30 caps 12/07/22 release (Cymbalta) gabapentin 300 mg capsule 300 mg PO TID #30 caps 12/07/22 hydrocodone 5 mg-acetaminophen 325 1 tab PO Q8H PRN pain #14 tabs 12/07/22 mg tablet oxycodone 5 mg tablet 5 mg PO Q6H PRN pain #10 tabs 01/11/23 tamsulosin 0.4 mg capsule (Flomax) 0.4 mg PO DAILY #7 caps 01/11/23 Allergies Allergy/AdvReac Type Severity Reaction Status Date / Time lisinopril AdvReac Verified 12/02/22 18:46 Review of Systems Review of Systems ROS Unobtainable: All systems reviewed & are unremarkable except as noted in HPI and below Patient History Medical History Hyperlipidemia Hypertension Social History household members: spouse Smoking Status: Never smoker alcohol intake: current Smoking Status: Never smoker alcohol intake frequency: a few times a month Substance Use Type: does not use Exam Narrative Exam Narrative: GENERAL: Alert and oriented x three, elderly male in mild distress. Patient had received pain medications prior to evaluation. HEENT: Head normocephalic, atraumatic, EOMI, pupils reactive, face symmetric, moist mucous membranes NECK: Supple, full range of motion CARDIOVASCULAR: Regular rate and rhythm without murmurs, rubs or gallops. RESPIRATORY: Breath sounds equal bilaterally, no wheezes rales or rhonchi. ABDOMEN: Soft, nontender. Nondistended. Normoactive bowel sounds all 4 quadrants. No guarding or rebound, rigidity, no mass, no pulsatile mass or bruit : No CVA tenderness EXTREMITIES: Normal range of motion, no clubbing or edema. Neurovascularly intact NEUROLOGICAL: Cranial nerves II through XII grossly intact. Moving all extremities SKIN: Warm, dry, no petechiae, no rashes or lesions. Initial Vital Signs Initial Vital Signs: Vital Signs Temperature 97.6 F 01/10/23 19:36 Pulse Rate 70 01/10/23 19:36 Respiratory Rate 16 01/10/23 19:36 Blood Pressure 185/97 H 01/10/23 19:36 Pulse Oximetry 96 01/10/23 19:36 Oxygen Delivery Method Room Air 01/10/23 19:36 Course Orders Ordered: ED Orders 01/10/23 19:48 CT kidney ureter bladder (KUB) Stat 01/10/23 20:02 CBC Auto Diff [Complete Blood Count AUTO DIFF] Stat CMP [Comprehensive Metabolic Panel] Stat Lipase Stat 01/10/23 21:22 Urine Culture Stat Urine Microscopic Stat Discontinued Medications Hydrocodone Bitart/Acetaminophen (Hydrocodone/Acet 5/325 Prepack) 1 bottle MISC SEEINSTR ONE Stop: 01/11/23 00:27 Last Admin: 01/11/23 01:05 Dose: 1 bottle Documented By: JARRED Ketorolac Tromethamine (Ketorolac 30 Mg/Ml Vial) 15 mg IV NOW ONE Stop: 01/10/23 19:49 Last Admin: 01/10/23 20:40 Dose: 15 mg Documented By: SULTANA Ondansetron HCl (Ondansetron 4 Mg/2 Ml Inj) 4 mg IV NOW ONE Stop: 01/10/23 19:49 Last Admin: 01/10/23 20:40 Dose: 4 mg Documented By: SULTANA Tamsulosin HCl (Tamsulosin 0.4 Mg Capsule) 0.4 mg PO NOW ONE Stop: 01/11/23 00:27 Last Admin: 01/11/23 01:05 Dose: 0.4 mg Documented By: JARRED Vital Signs Vital signs: Vital Signs - 8 hr 01/10/23 19:36 01/10/23 22:23 01/10/23 22:24 Temperature 97.6 F Pulse Rate 70 59 L Respiratory Rate 16 Blood Pressure 185/97 H 160/77 H Pulse Oximetry 96 94 Oxygen Delivery Method Room Air 01/10/23 22:24 01/10/23 22:30 01/10/23 22:30 Temperature Pulse Rate 58 L 74 Respiratory Rate 18 Blood Pressure 160/78 H Pulse Oximetry 94 94 Oxygen Delivery Method 01/10/23 23:00 01/10/23 23:00 01/11/23 00:00 Temperature Pulse Rate 69 62 Respiratory Rate 18 Blood Pressure 171/85 H Pulse Oximetry 93 96 Oxygen Delivery Method 01/11/23 00:01 01/11/23 00:01 01/11/23 01:11 Temperature Pulse Rate 73 75 Respiratory Rate 16 16 Blood Pressure 179/80 H 175/79 H Pulse Oximetry 96 96 Oxygen Delivery Method Room Air MDM - Abdominal Pain Lab Data 01/10/23 20:02 01/10/23 20:02 Labs: Lab Results 01/10/23 01/10/23 Range/Units 20:02 21:22 WBC 18.2 H (4.5-11.0) X10^3/uL RBC 5.27 (4.5-5.9) X10^6/uL Hgb 15.8 (13.5-17.5) g/dL Hct 47.4 (41-53) % MCV 89.9 (80-100) fL MCH 29.9 (26-34) PG MCHC 33.3 (30-36) % RDW 14.2 (11.6-14.8) % Plt Count 251 (150-400) X10^3/uL Neut % (Auto) 81.7 H (50-75) % Lymph % (Auto) 8.6 L (25-40) % Sibley % (Auto) 8.0 (3-14) % Eos % (Auto) 1.1 L (2-4) % Baso % (Auto) 0.6 (0-2) % Neut # (Auto) 89968 H (7006-7850) /uL Lymph # (Auto) 1600 (5182-9821) /uL Sibley # (Auto) 1500 H (0-900) /uL Eos # (Auto) 200 (0-450) /uL Baso # (Auto) 100 (0-100) /uL Sodium 136 L (137-145) mmol/L Potassium 4.3 (3.4-5.1) mmol/L Chloride 101 (98-107) mmol/L Carbon Dioxide 25 (22-32) mmol/L BUN 18 (9-20) mg/dL Creatinine 0.87 (0.66-1.25) mg/dL Estimated GFR > 60 (>60) mL/min BUN/Creatinine Ratio 20.7 (6-22) Glucose 116 H (80-110) mg/dL Calcium 10.2 (8.4-10.2) mg/dL Total Bilirubin 1.5 H (0.2-1.3) mg/dL AST 27 (17-59) IU/L ALT 25 (<50) IU/L Alkaline Phosphatase 123 (38-126) U/L Total Protein 7.9 (6.3-8.2) g/dL Albumin 4.7 (3.5-5.0) g/dL Globulin 3.2 (1.7-4.1) g/dL Albumin/Globulin Ratio 1.5 (1.0-2.8) Lipase 84 (23-300) U/L Urine RBC 5-10/hpf H (0-5/HPF) Urine WBC 1-5/hpf (0-5/HPF) Ur Squamous Epith Cells None seen (0-5/HPF) Urine Bacteria Occasional (0-1) (None) Ur Culture Indicated? Cult not indicated Point of care testing: Urine Dip Bedside Urine Glucose Negative Bedside Urine Bilirubin - Negative Bedside Urine Ketone - Negative Urine Specific Spurgeon 1.030 Bedside Urine Occult Blood +++ Bedside Urine pH 6.0 Bedside Urine Protein ++ 100 Bedside Urine Urobilinogen - Negative Bedside Urine Nitrite - Negative Bedside Urine Leukocytes +/- [address] scan - abdomen/pelvis: Radiologist's Impression: Close Abdomen/Pelvis CT (Signed) Gary Bal - 01/10/23 Shoulder X-Ray (Signed) Richard Piperwn - 12/04/22 Elbow X-Ray (Signed) Killian Quezada - 12/02/22 Telemetry Strips 12/02/[address] (Signed) Julien Florez - 12/02/22 Chest/Abdomen/Pelvis CT (Signed) Minesh Feliz - 12/02/[address] (Signed) Minesh Feliz - 12/02/22 Lumbar Spine MRI (Signed) Lakisha Watts - 09/01/22 Chest X-Ray (Signed) Minesh Armstrong - 07/23/22 Foot X-Ray (Signed) Zander Jean-Baptiste - 02/10/22 Ankle X-Ray (Signed) Zander Jean-Baptiste - 02/10/22 Lumbar Spine MRI (Signed) Julien Florez - 12/12/21 Shoulder X-Ray (Signed) Zoila Pritchett - 03/21/21 Abdomen MRI (Signed) Lakisha Watts - 12/06/20 Abdomen/Pelvis CT (Signed) Rudy Merritt - 11/05/19 [facility] [address] CT Scan Report Signed Patient: Mariano Buenrostro MR#: [id number] : 1935 Acct:[id number] Age/Sex: 87 / M Date of Service: 01/10/23 Loc: ED Accession Number: [id number] Procedure: CT kidney ureter bladder (KUB) Ordering Provider: Tonya Ag D.O. PROCEDURE: CT KIDNEY URETER BLADDER (KUB) INDICATIONS: flank pain, vomiting TECHNIQUE: Axial sections were acquired from the lung bases to the pubic symphysis. Coronal and sagittal reformats were performed. For radiation dose reduction, the following was used: automated exposure control, adjustment of mA and/or kV according to patient size. COMPARISON: [facility], CT, CT CHEST ABD PEL W CON, 12/02/2022, 18:34. FINDINGS: Image quality: Excellent. Lung bases: Unremarkable. Heart: No significant findings. URINARY: Right Kidney: Moderate hydronephrosis and perinephric fat stranding. Right Ureter: Obstructing 3.5 mm stone in the proximal right ureter. Left Kidney: No stones or hydronephrosis. Left Ureter: No hydroureter. Bladder: Normal wall thickness. No stones. ABDOMEN: Liver: Unremarkable. Gallbladder: Unremarkable. Biliary ducts: Unremarkable. Pancreas: Unremarkable. Spleen: Unremarkable. Adrenal Glands: Unremarkable. Stomach and Bowel: Colonic diverticulosis without evidence of diverticulitis. Peritoneum: No abnormal intraperitoneal fluid. No free air. Ventral Wall: No hernia. Abdominal Nodes: No enlarged retroperitoneal or mesenteric lymph nodes. Vessels: Aorta and inferior vena cava are normal in size. PELVIS: Pelvic Organs: Unremarkable. Pelvic Nodes: Unremarkable. Miscellaneous: Trace fat within the left inguinal canal. Bones: Subacute compression deformities of the superior endplates T12 and L1, without endplate retropulsion. IMPRESSION: Obstructing 3.5 mm stone in the proximal right ureter, resulting in moderate hydronephrosis and perinephric fat stranding. New compression deformity of the T12 and L1 vertebral bodies compared with 12/02/2022. No endplate retropulsion. Correlate with recent history of trauma. Dictated by: Gary Bal M.D. on 01/10/2023 at 20:18 Approved by: Gary Bal M.D. on 01/10/2023 at 20:22 MDM Narrative Medical decision making narrative: 89-year-old male with sudden onset of right flank pain nausea and vomiting who found to have right-sided kidney stone. Patient does have a white count of 18 normal hemoglobin and platelets leftward shift no bandemia. Sodium is 136 normal electrolytes creatinine and glucose of 116 bilirubin is 1.5 has been elevated on prior visits. Normal LFTs. Point of care urine shows blood, no nitrites positive for leukocyte esterase. Patient has 5-10 RBCs, 1-5 WBCs occasional bacteria. Patient does not appear to have infection but we will culture urine. Pain is well controlled after a dose of Toradol. He is not had any persistent nausea or vomiting. They feel comfortable returning home will give script for Flomax, pain management and referral to Urology for follow-up. Reviewed return precautions with patient and who expressed their understanding. Discharge Plan Departure Patient Disposition: Home Clinical Impression: Kidney stone on right side, Compression fracture of T12 vertebra, Closed compression fracture of L1 vertebra Instructions: DI for Kidney Stones Activity Restrictions/Additional Instructions: You have a kidney stone on your right side that appears to be 3.5 mm which should pass on its own. If your symptoms are controlled but still present please follow-up with urology and call to set up an appointment in the next several days. It is noted that you have new compression fracture at T12 and L1 compared to imaging on 12/02/2022. You do not have to do anything with these findings if you are not having any new or worsening back pain. You may take Flomax once daily until gone. You may take Tylenol up to a 1000 mg every 6 hours as needed. You can take ibuprofen up to 600 mg every 6 hours as needed. You may take oxycodone 1-2 tablets as needed if your pain is not controlled with other medications. This medication can make you sleepy do not drive, perform hazardous activities or make any major decisions while taking it. This medication will make you constipated please take a stool softener once to twice daily until stools are soft and regular. Prescription sent to [facility] Please return for fevers new or worsening abdominal back or flank pain, vomiting, lightheadedness or passing out, inability urinate, black or bloody stools or other new or concerning symptoms. Prescriptions: New tamsulosin [Flomax] 0.4 mg capsule 0.4 mg PO DAILY Qty: 7 0RF oxycodone 5 mg tablet 5 mg PO Q6H PRN (Reason: pain) Qty: 10 0RF No Action gabapentin 300 mg capsule 300 mg PO 3XD rosuvastatin 10 mg tablet 10 mg PO ONCE PM duloxetine 60 mg capsule,delayed release(DR/EC) 60 mg PO DAILY acetaminophen 325 mg Tablet 650 mg PO Q6HR PRN (Reason: Fever/Mild Pain (1-3)) Qty: 40 0RF gabapentin 300 mg Capsule 300 mg PO TID Qty: 30 0RF duloxetine [Cymbalta] 30 mg Capsule,Delayed Release(Dr/Ec) 60 mg PO DAILY Qty: 30 0RF hydrocodone-acetaminophen 5-325 mg tablet 1 tab PO Q8H PRN (Reason: pain) Qty: 14 0RF Referrals: Sruthi Kelley PA-C [Primary Care Provider] - Richard Flynn MD [Physician] - Stand Alone Forms: Patient Portal/API
[2023-01-11] VITALS: PULSE 62; O2SAT 96
[2023-01-11 00:01] VITALS: BP 179/80; PULSE 73; RESP 16; O2SAT 96
[2023-01-11 00:13] LABS: Bacteria Urine Occasional (0-1); Culture Indicated Urine Cult Not Indicated; RBC Urine 5-10/HPF (0-5/HPF); Squamous Epithelial Cell Urine None Seen (0-5/HPF); WBC Urine 1-5/HPF (0-5/HPF)
[2023-01-11] MEDS: HYDROCODONE/ACET 5/325 PREPACK 1 BOTTLE MISC (01:05)
[2023-01-11] MEDS: TAMSULOSIN 0.4 MG CAPSULE PO (01:05)
[2023-01-11 01:11] VITALS: BP 175/79; PULSE 75; RESP 16; O2SAT 96
== END 2023-01-11 01:15 | disposition home or self-care (01) ==
PROVIDERS: Emergency Provider Emergency Medicine; Family Provider Internal Medicine; PCP Student in an Organized Health Care Education/Training Program
DX: N20.0 Calculus of kidney (principal); S32.010A Wedge compression fracture of first lumbar vertebra, initial encounter for closed fracture; S22.080A Wedge compression fracture of T11-T12 vertebra, initial encounter for closed fracture; R11.2 Nausea with vomiting, unspecified
CPT/HCPCS: 36415; 74176; 80053; 81003; 81015; 83690; 85025; 87086; 96374; 96375; 99284; J1885; J2405

== ENCOUNTER → 2023-02-28 13:49 | Outpatient (CLI) | payer OTHER, SELFPAY ==
[2022-12-02 21:04] VITALS: BMI 31.9
--- NOTE | 2023-02-28 13:56 | DI.CT.S_ITS ---
PROCEDURE: CT KIDNEY URETER BLADDER (KUB) INDICATIONS: Calculus of ureter TECHNIQUE: Axial sections were acquired from the lung bases to the pubic symphysis. Coronal and sagittal reformats were performed. For radiation dose reduction, the following was used: automated exposure control, adjustment of mA and/or kV according to patient size. COMPARISON: [facility], CT, CT KIDNEY URETER BLADDER (KUB), 01/10/2023, 19:54. [facility], CR, XR SHOULDER RT MIN 2V, 12/04/2022, 9:20. FINDINGS: Image quality: Diagnostic. Lower chest: Basal atelectasis. No pleural effusions. Mildly patulous distal esophagus. Normal heart size. There are coronary calcifications. Liver: Possible mild hepatic steatosis. Gallbladder and biliary system: Unremarkable, nondilated Pancreas: Mildly atrophic body and tail Spleen: Nonenlarged Adrenals: No discrete nodule Kidneys: No solid mass or hydronephrosis. Previous right ureter calculus is not seen. Phleboliths and hyperdensities related to prostatectomy again seen in the pelvis near the distal ureters and UVJ. Possible tiny nonobstructing stone at the right lower pole measuring 1 mm (4/44.) Vessels and lymph nodes: No abdominal aortic aneurysm. No pathologic lymph nodes by size criteria. Atherosclerotic calcifications are present. Bowel and peritoneum: No evidence of small bowel obstruction. No pathologic ascites or drainable fluid collection. Colonic diverticula are present. Body wall: Small fat containing left inguinal hernia. Small fat containing umbilical hernia. Pelvis: Prostatectomy changes. Bladder is unremarkable. Bones: No acute or suspicious osseous finding. There are degenerative changes. Mild height loss of T12 and L1 again seen. IMPRESSION: No obstructing stone or hydronephrosis. Right lower pole 1 mm nonobstructing stone. Other findings as above. Dictated by: Polo Gonzalez M.D. on 02/28/2023 at 15:25 Approved by: Polo Gonzalez M.D. on 02/28/2023 at 15:29
== END ==
LOC: CT 13:50
PROVIDERS: Family Provider Internal Medicine; PCP Student in an Organized Health Care Education/Training Program; Referring Provider Urology; Visit Provider Urology
DX: N20.1 Calculus of ureter (principal); I25.10 Atherosclerotic heart disease of native coronary artery without angina pectoris; K57.90 Diverticulosis of intestine, part unspecified, without perforation or abscess without bleeding; K40.90 Unilateral inguinal hernia, without obstruction or gangrene, not specified as recurrent; K42.9 Umbilical hernia without obstruction or gangrene
CPT/HCPCS: 74176